=== PATIENT | female | born 1940 | race Two or more races ===

== ENCOUNTER 2025-07-29 19:48 | Inpatient (IN) | payer MEDICARE, MEDICAID ==
[~2025-07-29] VITALS: Ht 154.9 cm; Wt 81.1 kg
[~2025-07-29 19:48] MED LIST: ALEN1TAB PO; ASPI81CH43 PO; IBU600T PO; LEVO75TA6 PO; MEPR400T4 PO; PROP-312 PO
--- NOTE | 2025-07-29 20:20 | ED.PDOC ---
History of Present Illness HPI Comments 84-year-old female who came to ER via EMS for weakness. Patient states since last night she has been having generalized weakness, body aches, on and off fever (Tmax 102 F). Denies any chest pains or shortness a breath. Denies any nausea vomiting or diarrhea. Patient is saturating 91% on room air Chief Complaint: Weakness Time Seen by MD: 20:20 Reviewed Notes: Nurses Notes Allergies: Coded Allergies: NO KNOWN ALLERGIES (Unverified , 10/21/10) Home Meds Reported Medications Meprobamate (Meprobamate) 400 Mg Tab, 1 TAB PO DAILY 10/21/10 *Ibuprofen Micronized (*Motrin) 600 Mg Tb, 1 TAB PO Q6HP PRN for MILD PAIN OR TEMP>100.4 10/21/10 Aspirin (Asa) 81 Mg Ch, 1 TAB PO DAILY 10/21/10 Propoxyphene-N W/ Apap (Darvocet-N 100) 100 Mg Tab, 1 TAB PO Q6HPRN PRN for MILD PAIN OR TEMP>100.4 10/21/10 Alendronate Sodium-Cholecalcif (Fosamax Plus D) 1 Tab Tab, 1 TAB PO DAILY 10/21/10 Levothyroxine Sodium (Levothyroxine Sodium) 75 Mcg Tab, 1 TAB PO QAM 10/21/10 Information Source: Patient Mode of Arrival: EMS Severity: Moderate Timing: Hours Duration: Since onset Prehospital treatment: Oxygen Past Medical History PAST MEDICAL HISTORY: High Lipids, HTN Surgical History: Denies all surgeries INSURANCE 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 MANAGER 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: Denies all INSURANCE OFFICE MANAGER Hx Family History Family History: Reviewed,noncontributory to illness Social History Smoker: Non-Smoker Alcohol: Denies ETOH Use Drugs: Denies Drug Use Lives In: Home Constitutional: reports: fatigue, fever, malaise, weakness; denies: chills, diaphoresis, sweats, others EENTM: denies: blurred vision, double vision, ear bleeding, ear discharge, ear drainage, ear pain, ear ringing, eye pain, eye redness, hearing loss, mouth pain, mouth swelling, nasal discharge, nose bleeding, nose congestion, nose pain, photophobia, tearing, throat pain, throat swelling, voice changes, others Respiratory: denies: cough, hemoptysis, orthopnea, SOB at rest, shortness of breath, SOB with excertion, stridor, wheezing, others Cardiovascular: denies: chest pain, dizzy spells, diaphoresis, Dyspnea on exertion, edema, irregular heart beat, left arm pain, lightheadedness, palpitations, PND, syncope, others Gastrointestinal: denies: abdomen distended, abdominal pain, blood streaked bowels, constipated, diarrhea, dysphagia, difficulty swallowing, hematemesis, melena, nausea, poor appetite, poor fluid intake, rectal bleeding, rectal pain, vomiting, others Genitourinary: denies: abnormal vagina bleeding, burning, dyspareunia, dysuria, flank pain, frequency, hematuria, incontinence, pain, , vagina discharge, urgency, others Neurological: denies: dizziness, fainting, headache, left sided numbness, left sided weakness, numbness, paresthesia, pre-existing deficit, right sided numbne ss, right sided weakness, seizure, speech problems, tingling, tremors, weakness, others Musculoskeletal: denies: back pain, gout, joint pain, joint swelling, muscle pain, muscle stiffness, neck pain, others Integumetry: denies: bruises, change in color, change in hair/nails, dryness, laceration, lesions, lumps, rash, wounds, others Allergic/Immunocompromised: denies: Difficulty Healing, Frequent Infections, Hives, Itching, others Hematologic/Lymphatic: denies: anemia, blood clots, easy bleeding, easy bruising, swollen glands, others Endocrine: denies: excessive hunger, excessive sweating, excessive thirst, excessive urination, flushing, intolerance to cold, intolerance to heat, unexplained weight gain, unexplained weight loss, others Psychiatric: denies: anxiety, bipolar disorder, depression, hopeless, panic disorder, schizophrenia, sleepless, suicidal, others Physical Exam General Appearance: No Apparent Distress, Normal HEENT: Normal ENT Inspection, Pharynx Normal, TMs Normal Neck: Full Range of Motion, Non-Tender, Normal, Normal Inspection Respiratory: Chest Non-Tender, Lungs Clear, No Accessory Muscle Use, No Respiratory Distress, Normal Breath Sounds Cardiovascular: No Edema, No JVD, No Murmur, No Gallop, Normal Peripheral Pulses, Regular Rate/Rhythm Breast Exam: Deferred Gastrointestinal: No Organomegaly, Non Tender, No Pulsatile Mass, Normal Bowel Sounds, Soft Genitalia: Deferred Pelvic: Deferred Rectal: Deferred Extremities: No calf tenderness, Normal capillary refill, Normal inspection, Normal range of motion, Non-tender, No pedal edema Musculoskeletal : Apperance: Normal Neurologic: Alert, workers compensation claims supervisor II-XII nml as Tested, No Motor Deficits, Normal Affect, Normal Mood, No Sensory Deficits Cerebellar Function: Normal Reflexes: Normal Skin: Dry, Normal Color, Warm Lymphatic: No Adenopathy Was a procedure done? Was a procedure done?: No Differential Dx Considerations may include: Anemia, electrolyte imbalance, viral syndrome, COVID-19, influenza X-Ray, Labs, Meds, VS Vital Signs Date Time Temp Pulse Resp B/P (MAP) Pulse Ox O2 Delivery O2 Flow Rate FiO2 07/29/25 22:20 101.1 64 16 147/64 (91) 97 101.1 07/29/25 19:48 102.0 74 28 163/63 95 102.0 Lab Test 07/29/25 22:36 07/29/25 20:34 Range/Units SARS-CoV-2 Antigen (Rapid) Positive *A NEGATIVE White Blood Count 6.2 4.4-10.8 10^3/uL Red Blood Count 4.67 4.0-5.20 10^6/uL Hemoglobin 13.4 12.2-16.2 g/dL Hematocrit 39.7 36.0-46.0 % Mean Corpuscular Volume 85.0 80.0-100.0 fL Mean Corpuscular Hemoglobin 28.6 28.0-32.0 pg Mean Corpuscular Hemoglobin Concent 33.6 32.0-36.0 g/dL Red Cell Distribution Width 14.9 H 11.8-14.3 % Platelet Count 174 140-450 10^3/uL Mean Platelet Volume 8.6 6.9-10.8 fL Neutrophils (%) (Auto) 73.4 37.0-80.0 % Lymphocytes (%) (Auto) 14.5 10.0-50.0 % Monocytes (%) (Auto) 10.9 0.0-12.0 % Eosinophils (%) (Auto) 0.4 0.0-7.0 % Basophils (%) (Auto) 0.8 0.0-2.0 % Neutrophils # (Auto) 4.6 1.6-8.6 10 ^3/uL Lymphocytes # (Auto) 0.9 0.4-5.4 10 ^3/uL Monocytes # (Auto) 0.7 0-1.3 10 ^3/uL Eosinophils # (Auto) 0 0-0.8 10 ^3/uL Basophils # (Auto) 0 0-0.2 10 ^3/uL Nucleated Red Blood Cells 0.0 % Sodium Level 140 136-145 mmol/L Potassium Level 4.0 3.5-5.1 mmol/L Chloride Level 106 98-107 mmol/L Carbon Dioxide Level 24 20-31 mmol/L Anion Gap 10 5-15 Blood Urea Nitrogen 17 9-23 mg/dL Creatinine 1.16 H 0.550-1.02 mg/dL Glomerular Filtration Rate Calc 46 >90 mL/min BUN/Creatinine Ratio 14.7 10.0-20.0 Serum Glucose 122 H 74-106 mg/dL Lactic Acid Level 1.4 0.4-2.0 mmol/L Calcium Level 9.7 8.7-10.4 mg/dL Total Bilirubin 0.5 0.2-1.0 mg/dL Aspartate Amino Transferase (AST) 40 13-40 U/L Alanine Aminotransferase (ALT) 37 7-40 U/L Alkaline Phosphatase 40 L 46-116 U/L Total Protein 7.3 5.7-8.2 g/dL Albumin 4.3 3.2-4.8 g/dL Thyroid Stimulating Hormone (TSH) 0.43 L 0.55-4.78 uIU/mL Free Thyroxine (T4) Calculated Pending Current Medications Medications (Trade) Dose Ordered Sig/Citlaly Route Start Time Stop Time Status Last Admin Sodium Chloride 1,000 ml @ 1,000 mls/hr Q1H ONCE IVB 07/29/25 20:30 07/29/25 21:29 DC 07/29/25 22:28 Acetaminophen (Ofirmev) 1,000 mg ONCE ONCE IV 07/29/25 22:00 07/29/25 22:01 DC 07/29/25 22:28 Piperacillin Sod/ Tazobactam Sod 100 ml @ 100 mls/hr ONCE ONCE IV 07/29/25 22:00 07/29/25 22:59 DC 07/29/25 23:02 EXAM: XY CHEST PORTABLE HISTORY: SOB, fever TECHNIQUE: 1 view of the chest COMPARISON: None FINDINGS/IMPRESSION: LUNGS: No pleural effusion, consolidation, or pneumothorax MEDIASTINUM: Unremarkable BONES: No acute osseous abnormality OTHER: None Time of 1ST Reevaluation: 20:17 Reevaluation 1ST: Unchanged Patient Education/Counseling: Diagnosis, Treatment Family Education/Counseling: No Family Present SEPSIS Sepsis Screen Physician Orders Urinalysis (07/29/25 20:17) Blood Culture (07/29/25 20:17) Chest Portable (07/29/25 20:17) Rapid Influenza A&B (07/29/25 20:17) Free T4 (Free Thyroxine) (07/29/25 20:17) Vital Signs Date Time Temp Pulse Resp B/P (MAP) Pulse Ox O2 Delivery O2 Flow Rate FiO2 07/29/25 22:20 101.1 64 16 147/64 (91) 97 101.1 07/29/25 19:48 102.0 74 28 163/63 95 102.0 Laboratory Tests Test 07/29/25 20:34 Lactic Acid Level 1.4 mmol/L (0.4-2.0) White Blood Count 6.2 10^3/uL (4.4-10.8) Medications Medications Dose Ordered Sig/Citlaly Route Start Time Stop Time Status Last Admin Dose Admin Acetaminophen 1,000 mg ONCE ONCE IV 07/29/25 22:00 07/29/25 22:01 DC 07/29/25 22:28 Piperacillin Sod/ Tazobactam Sod 100 ml @ 100 mls/hr ONCE ONCE IV 07/29/25 22:00 07/29/25 22:59 DC 07/29/25 23:02 Sodium Chloride 1,000 ml @ 1,000 mls/hr Q1H ONCE IVB 07/29/25 20:30 07/29/25 21:29 DC 07/29/25 22:28 Departure 1 Departure Time of Disposition: 00:30 Impression: Primary Impression: Hypothyroidism Additional Impressions: Fever Dehydration COVID-19 Disposition: ADMITTED INPATIENT Admit to: Med Surg Condition: Guarded Discharged With: Self Comments 84-year-old female with a fever 102 at home and generalized weakness. Lab and chest x-ray results reviewed. Patient is positive for COVID. On re-evaluation patient is still very weak, too weak to stand without assistance and short of breath with exertion. Patient will need admission for supportive care and further workup. Patient was given IV fluids and IV Zosyn antibiotics. Critical Care Note Critical Care Time?: No Stability Stability form required: No Heart Score Heart Score: Heart Score Response (Comments) Value History N/A 0 EKG N/A 0 Age N/A 0 Risk Factors N/A 0 Troponin N/A 0 Total 0 I personally scribed for BRANDEN SAUNDERS MD ([email or web address]) on 07/29/25 at 20:20. Electronically submitted by Carter Spann ([facility]). I personally scribed for BRANDEN SAUNDERS MD ([email or web address]) on 07/29/25 at 23:54. Electronically submitted by Carter Spann ([email or web address]). BRANDEN SAUNDERS MD Jul 29, 2025 20:20
[2025-07-29 20:46] LABS: Hematocrit 39.7 % (36.0-46.0); Hemoglobin 13.4 g/dL (12.2-16.2); Mean Corpuscular Hemoglobin 28.6 pg (28.0-32.0); Mean Corpuscular Volume 85.0 fL (80.0-100.0); Nucleated Red Blood Cells % 0.0 %
[2025-07-29 20:58] LABS: Alanine Aminotransferase 37 U/L (7-40); Albumin 4.3 g/dL (3.2-4.8); Anion Gap 10 (5-15); BUN/Creatinine Ratio 14.7 (10.0-20.0); Bilirubin, Total 0.5 mg/dL (0.2-1.0); Blood Urea Nitrogen 17 mg/dL (9-23); Calcium 9.7 mg/dL (8.7-10.4); Carbon Dioxide 24 mmol/L (20-31); Chloride 106 mmol/L (98-107); Potassium 4.0 mmol/L (3.5-5.1); Sodium 140 mmol/L (136-145); Total Protein 7.3 g/dL (5.7-8.2)
--- NOTE | 2025-07-29 21:07 | DVH ---
EXAM: XY CHEST PORTABLE HISTORY: SOB, fever TECHNIQUE: 1 view of the chest COMPARISON: None FINDINGS/IMPRESSION: LUNGS: No pleural effusion, consolidation, or pneumothorax MEDIASTINUM: Unremarkable BONES: No acute osseous abnormality OTHER: None
[2025-07-29 21:26] LABS: Alkaline Phosphatase 40 U/L (46-116); Glucose 122 mg/dL (74-106)
[2025-07-29] MEDS: SODIUM CHLORIDE 0.9% 1,000 ML IVB ONE (22:28)
[2025-07-29] MEDS: ACETAMINOPHEN IV 1000 MG/100ML (10MG/ML) IV ONE (22:28)
[2025-07-29] MEDS: PIPERACILLIN-TAZOB 3.375GM 100 ML IV ONE (23:02)
[2025-07-30] VITALS (8 sets, daily range): BP systolic 136–166; BP diastolic 59–73; PULSE 52–65; RESP 17–20; TEMP 98.5–99; O2SAT 93–100
[2025-07-30 00:13] LABS: COVID19 ANTIGEN SOFIA FIA POSITIVE (NEGATIVE)
[2025-07-30] MEDS ORDERED: NITROGLYCERIN 0.4 MG SL TAB SL PRN (02:45)
[2025-07-30] MEDS ORDERED: HYDROcodone-ACET 5/325MG TAB PO PRN (02:45)
[2025-07-30] MEDS ORDERED: ONDANSETRON HCL 4 MG/2 ML VIAL IV PRN (02:45)
[2025-07-30] MEDS ORDERED: MORPHINE SULFATE INJ 2 MG/ml SYRG IV PRN (02:45)
[2025-07-30] MEDS ORDERED: ACETAMINOPHEN 325 MG TAB PO PRN (02:45)
--- NOTE | 2025-07-30 03:06 | DVHHP2 ---
History of Present Illness Reason for Visit: COVID-19 viral pneumonia History of Present Illness The patient is a 84-year-old female with past medical history of hypothyroidism, hyperlipidemia, and hypertension who presented to [facility] ED with complaint of generalized weakness associated with shortness of breaths. Patient reports she has been having generalized weakness, body aches, subjective intermittent fever 102 F.Patient was seen and evaluated in the ED, laboratory data shows WBC 6.2, platelets 174, sodium 140, potassium 4.0, BUN 17, creatinine 1.16, GFR 46, glucose 122, calcium 9.7, TSH 0.43, blood pressure 142/53, heart rate 60, temperature 98.5 F, O2 saturation 97% on oxygen. Serology reports positive for COVID-19. Chest x-ray show no pleural effusion, consolidation, or pneumothorax. Please see medication orders section in the computer. On my assessment, patient denies chest pain, no headache, no dizziness, currently on oxygen, no abdominal pain, no diarrhea, no nausea, no vomiting, no fever, no chills. Patient was admitted for further evaluation and medical management. Past Medical History Hypothyroidism, High Lipids, HTN Past Surgical History Denies all surgeries Family History Reviewed, noncontributory to the management of this case. Past Social History The patient lives at home, denies smoking, alcohol or illicit drugs abuse. Review of Systems Constitutional: Yes: Fever, Weakness, Malaise, Other (Fatigue); No: Chills, Sweats Eyes: No: Pain, Vision change, Conjunctivae inflammation, Eyelid inflammation, Other, Redness ENT: No: Ear pain, Ear discharge, Nose pain, Nose discharge, Nose congestion, Mouth pain, Mouth swelling, Throat pain, Throat swelling, Other Respiratory: Shortness of breath; No: Cough, Dry, SOB with excertion, Wheezing, Hemoptysis, Pleuritic Pain, Sputum, Wheezing, Other Cardiovascular: No: Chest Pain, Palpitations, Orthopnea, Paroxysmal Noc. Dyspnea, Edema, Lt Headedness, Other Gastrointestinal: No: Nausea, Vomiting, Abdominal Pain, Diarrhea, Constipation, Melena, Hematochezia, Other Genitourinary: No Dysuria, No Frequency, No Incontinence, No Hematuria, No Retention, No Other Musculoskeletal: No: other, neck pain, shoulder pain, arm pain, back pain, hand pain, leg pain, foot pain Skin: No: Rash, Lesions, Jaundice, Bruising, Other Neurological: No: Weakness, Numbness, Incoordination, Change in speech, Confusion, Seizures, Other Allergies: Coded Allergies: NO KNOWN ALLERGIES (Unverified , 10/21/10) Exam Vital Signs Vital Signs Date Time Temp Pulse Resp B/P (MAP) Pulse Ox O2 Delivery O2 Flow Rate FiO2 07/30/25 02:00 53 18 142/53 (82) 97 07/30/25 00:52 Nasal Cannula* 2 28 07/30/25 00:52 98.5 98.5 General Appearance: Alert, Oriented X3, Cooperative, No acute distress HEENT: Atraumatic, PERRLA, EOMI, Mucous membr. moist/pink Respiratory: Normal air movement, Other (On oxygen) Cardiovascular: Regular rate, Normal S1, Normal S2, No murmurs Abdominal: Normal bowel sounds, Soft, No tenderness, No hepatospenomegaly, No masses Extremities: No clubbing, No cyanosis, No edema, Normal pulses, No tenderness/swelling Skin: No rashes, No breakdown, No significant lesion Neuro: Normal speech, Normal tone, Sensation intact, Cranial nerves 3-12 NL, Reflexes 2+, Other (Generalized weakness) Psych/Mental Status: Mental status NL, Mood NL Labs/Xrays Labs Test 07/29/25 22:36 07/29/25 20:34 Range/Units Influenza Type A Antigen Negative Negative Influenza Type B Antigen Negative Negative SARS-CoV-2 Antigen (Rapid) Positive *A NEGATIVE White Blood Count 6.2 4.4-10.8 10^3/uL Red Blood Count 4.67 4.0-5.20 10^6/uL Hemoglobin 13.4 12.2-16.2 g/dL Hematocrit 39.7 36.0-46.0 % Mean Corpuscular Volume 85.0 80.0-100.0 fL Mean Corpuscular Hemoglobin 28.6 28.0-32.0 pg Mean Corpuscular Hemoglobin Concent 33.6 32.0-36.0 g/dL Red Cell Distribution Width 14.9 H 11.8-14.3 % Platelet Count 174 140-450 10^3/uL Mean Platelet Volume 8.6 6.9-10.8 fL Neutrophils (%) (Auto) 73.4 37.0-80.0 % Lymphocytes (%) (Auto) 14.5 10.0-50.0 % Monocytes (%) (Auto) 10.9 0.0-12.0 % Eosinophils (%) (Auto) 0.4 0.0-7.0 % Basophils (%) (Auto) 0.8 0.0-2.0 % Neutrophils # (Auto) 4.6 1.6-8.6 10 ^3/uL Lymphocytes # (Auto) 0.9 0.4-5.4 10 ^3/uL Monocytes # (Auto) 0.7 0-1.3 10 ^3/uL Eosinophils # (Auto) 0 0-0.8 10 ^3/uL Basophils # (Auto) 0 0-0.2 10 ^3/uL Nucleated Red Blood Cells 0.0 % Sodium Level 140 136-145 mmol/L Potassium Level 4.0 3.5-5.1 mmol/L Chloride Level 106 98-107 mmol/L Carbon Dioxide Level 24 20-31 mmol/L Anion Gap 10 5-15 Blood Urea Nitrogen 17 9-23 mg/dL Creatinine 1.16 H 0.550-1.02 mg/dL Glomerular Filtration Rate Calc 46 >90 mL/min BUN/Creatinine Ratio 14.7 10.0-20.0 Serum Glucose 122 H 74-106 mg/dL Lactic Acid Level 1.4 0.4-2.0 mmol/L Calcium Level 9.7 8.7-10.4 mg/dL Total Bilirubin 0.5 0.2-1.0 mg/dL Aspartate Amino Transferase (AST) 40 13-40 U/L Alanine Aminotransferase (ALT) 37 7-40 U/L Alkaline Phosphatase 40 L 46-116 U/L Total Protein 7.3 5.7-8.2 g/dL Albumin 4.3 3.2-4.8 g/dL Thyroid Stimulating Hormone (TSH) 0.43 L 0.55-4.78 uIU/mL PATIENT: JUSTIN BARNETTT: [id number] UNIT: [id number] : 1940 LOC: ER ROOM / BED: / AGE / SEX: 84 / F ADM STATUS: REG ER SERVICE 16 ORDERING PHYSICIAN: BRANDEN SAUNDERS MD PROCEDURE(s): CXRP - CHEST PORTABLE REASON: SOB, fever ORDER NUMBER(s): [id number], ACCESSION NUMBER(s): [id number] EXAM: XY CHEST PORTABLE HISTORY: SOB, fever TECHNIQUE: 1 view of the chest COMPARISON: None FINDINGS/IMPRESSION: LUNGS: No pleural effusion, consolidation, or pneumothorax MEDIASTINUM: Unremarkable BONES: No acute osseous abnormality SEPSIS Sepsis Screen Date sepsis recognized/suspect: Jul 30, 2025 Time Sepsis recognized/suspect: 51 Recent Procedure: No On Antibiotic Therapy: No Respiratory Rate >20: No Heart Rate >90: No Temp<36 C (96.8 F) or >38.3 C: No SBP <90 or MAP <65 mmHG: No New Acute Mental Status Change: No Is the patient on CPAP, BIPAP,: No Physician Orders Urinalysis (07/29/25 20:17) Blood Culture (07/29/25 20:17) Chest Portable (07/29/25 20:17) Free T4 (Free Thyroxine) (07/29/25 20:17) Isolation Order (07/30/25 02:42) Precautions (Contact,Droplets, (07/30/25 02:42) Zinc 220 Mg Po Daily (07/30/25 10:00) Albuterol Inh (Covid-19) 90mcg (07/30/25 02:45) Oob To Chair Q4HR (07/30/25 02:42) Incentive Spirometry Q 1hr (07/30/25 02:42) Assistant Dean (07/30/25 02:42) Pulmicort Inhaler (07/30/25 10:00) Decadron 6mg Iv Daily (07/30/25 10:00) Lovenox 40mg Daily (07/30/25 10:00) Admit (07/30/25 02:42) Allergies (07/30/25 02:42) Code Status (07/30/25 02:42) Sodium Chloride Lock (Saline Lock Ns) (07/30/25 06:00) Oxygen Per Hour (07/30/25 02:42) Hydrocodone-Acet 5/325mg Tab ([place] 5/32 (07/30/25 02:45) Ondansetron Hcl (Zofran) (07/30/25 02:45) Docusate Sodium Capsule (Colace Capsule) (07/30/25 02:45) Ascorbic Acid Tablet (Vitamin C Tablet) (07/30/25 10:00) Multiple Vitamin Tablet (Mvi Tab) (07/30/25 10:00) Fall Risk Precautions In Place QSHIFT (07/30/25 02:42) Complete Blood Count (07/31/25 04:00) Comprehensive Metabolic Panel (07/31/25 04:00) Cardiac Diet-2gna,Lofat,Lochol (07/30/25 Breakfast) Condition: Serious (07/30/25 02:42) Acetaminophen Tablet (Tylenol Tablet) (07/30/25 02:45) Maintain Bed Rest (07/30/25 02:42) Sequential Compression Device (07/30/25 ) Nitroglycerin Sublingual (Ntrostat Subli (07/30/25 02:45) Morphine Sulfate Injection (07/30/25 02:45) Stat Ekg For Chest Pain (07/30/25 02:42) Notify Md Of Changes From Base (07/30/25 02:42) Assistant Dean For 24 Hours (07/30/25 02:42) Emergency Dysrhythmia Protocol (07/30/25 02:42) Rhythm Strips Once Every Shift (07/30/25 02:42) Oxygen By Nasal Cannula (07/30/25 02:42) Alendronate Sodium (Fosamax) (07/30/25 06:00) Levothyroxine Tablet (Synthroid Tablet) (07/30/25 06:00) Complete Blood Count (07/30/25 04:00) Comprehensive Metabolic Panel (07/30/25 04:00) Vital Signs Date Time Temp Pulse Resp B/P (MAP) Pulse Ox O2 Delivery O2 Flow Rate FiO2 07/30/25 02:00 53 18 142/53 (82) 97 07/30/25 00:52 Nasal Cannula* 2 28 07/30/25 00:52 98.5 60 17 147/51 (83) 91 98.5 07/29/25 23:00 98.9 98.9 07/29/25 22:20 101.1 64 16 147/64 (91) 97 101.1 07/29/25 19:48 102.0 74 28 163/63 95 102.0 Laboratory Tests Test 07/29/25 20:34 Lactic Acid Level 1.4 mmol/L (0.4-2.0) White Blood Count 6.2 10^3/uL (4.4-10.8) Medications Medications Dose Ordered Sig/Citlaly Route Start Time Stop Time Status Last Admin Dose Admin Acetaminophen 1,000 mg ONCE ONCE IV 07/29/25 22:00 07/29/25 22:01 DC 07/29/25 22:28 1,000 MG Piperacillin Sod/ Tazobactam Sod 100 ml @ 100 mls/hr ONCE ONCE IV 07/29/25 22:00 07/29/25 22:59 DC 07/29/25 23:02 100 MLS/HR Sodium Chloride 1,000 ml @ 1,000 mls/hr Q1H ONCE IVB 07/29/25 20:30 07/29/25 21:29 DC 07/29/25 22:28 1,000 MLS/HR Assessment/Plan Assessment/Plan COVID-19 viral infection Hypothyroidism Dehydration Fever, unspecified Plan 1. Admit to telemetry unit 2. Breathing treatment 3. Pain control management 4. Management of fluids and electrolytes 5. Consultation for hospitalist 6. Diagnostic tests chest x-ray 7. DVT prophylaxis-on Lovenox 8. Repeat labs CBC, CMP in a.m. 9. Continue with current medical management 10. Treatment plan discussed with patient and RN. Patient verbalized understanding. Plan discussed with: Patient, Other (RN) My Orders Orders - KARON HOLLAND DNP Procedure Category Date Status Time Isolation Order ORDERS 07/30/25 Verified 02:42 Precautions [facility] 07/30/25 Verified (Contact,Droplets, 02:42 Zinc 220 Mg Po Daily [facility] 07/30/25 Verified 10:00 Albuterol Inh [facility] 07/30/25 Verified (Covid-19) 90mcg 02:45 Oob To Chair [facility] 07/30/25 Verified 02:42 Incentive Spirometry ORDERS 07/30/25 Verified Q 1hr 02:42 Assistant Dean ORDERS 07/30/25 Verified 02:42 Pulmicort Inhaler [facility] 07/30/25 Verified 10:00 Decadron 6mg Iv Daily [facility] 07/30/25 Verified 10:00 Lovenox 40mg Daily [facility] 07/30/25 Verified 10:00 Admit ADMIT 07/30/25 Verified 02:42 Allergies [facility] 07/30/25 Verified 02:42 Code Status CODE 07/30/25 Verified 02:42 Sodium Chloride Lock PHA 07/30/25 Verified (Saline Lock Ns) 06:00 Oxygen Per Hour RT 07/30/25 Verified 02:42 Hydrocodone-Acet PHA 07/30/25 Verified 5/325mg Tab ([place] 02:45 Ondansetron Hcl PHA 07/30/25 Verified (Zofran) 02:45 Docusate Sodium PHA 07/30/25 Verified Capsule (Colace 02:45 Ascorbic Acid Tablet [facility] 07/30/25 Verified (Vitamin C Tablet) 10:00 Multiple Vitamin PHA 07/30/25 Verified Tablet (Mvi Tab) 10:00 Fall Risk Precautions [facility] 07/30/[address] 02:42 Complete Blood Count LAB 07/31/25 Verified 04:00 Comprehensive LAB 07/31/25 Verified Metabolic Panel 04:00 Cardiac DIET 07/30/25 Verified Diet-2gna,Lofat,Lochol Breakfast Condition: Serious [facility] 07/30/25 Verified 02:42 Acetaminophen Tablet [facility] 07/30/25 Verified (Tylenol Tablet) 02:45 Maintain Bed Rest [facility] 07/30/25 Verified 02:42 Sequential [facility] 07/30/25 Verified Compression Device Nitroglycerin [facility] 07/30/25 Verified Sublingual (Ntrostat 02:45 Morphine Sulfate [facility] 07/30/25 Verified Injection 02:45 Stat Ekg For Chest [facility] 07/30/25 Verified Pain 02:42 Notify Md Of Changes [facility] 07/30/25 Verified From Base 02:42 Assistant Dean For [facility] 07/30/25 Verified 24 Hours 02:42 Emergency Dysrhythmia [facility] 07/30/25 Verified Protocol 02:42 Rhythm Strips Once [facility] 07/30/25 Verified Every Shift 02:42 Oxygen By Nasal RT 07/30/25 Verified Cannula 02:42 Alendronate Sodium [facility] 07/30/25 Verified (Fosamax) 06:00 Levothyroxine Tablet [facility] 07/30/25 Verified (Synthroid Tablet) 06:00 Complete Blood Count LAB 07/30/25 Verified 04:00 Comprehensive LAB 07/30/25 Verified Metabolic Panel 04:00 Problem List: (1) COVID-19 virus infection (2) Hypothyroidism (3) Dehydration (4) Fever, unspecified Date of Service: Jul 30, 2025 Billing Provider: KARON HOLLAND DNP Common Visit Codes: [id number] INP/OBS CARE (HIGH) KARON HOLLAND DNP Jul 30, 2025 03:06
[2025-07-30 04:40] LABS: Urine Protein, UAD Negative (Negative)
[2025-07-30] MEDS ORDERED: ALENDRONATE SODIUM 10 MG TAB PO SCH (06:00)
[2025-07-30] MEDS: LEVOTHYROXINE SODIUM 25 MCG TAB PO SCH (06:21)
[2025-07-30] MEDS: SODIUM CHLOR 0.9% PF (SALINE LOCK) 10ML VIAL/SYR IV SCH (06:21)
[2025-07-30 10:13] LABS: Hematocrit 43.1 % (36.0-46.0); Hemoglobin 13.8 g/dL (12.2-16.2); Mean Corpuscular Hemoglobin 28.1 pg (28.0-32.0); Mean Corpuscular Volume 87.9 fL (80.0-100.0); Nucleated Red Blood Cells % 0.1 %
[2025-07-30 10:24] LABS: Alanine Aminotransferase 36 U/L (7-40); Albumin 4.0 g/dL (3.2-4.8); Anion Gap 11 (5-15); BUN/Creatinine Ratio 8.5 (10.0-20.0); Bilirubin, Total 0.5 mg/dL (0.2-1.0); Calcium 9.2 mg/dL (8.7-10.4); Carbon Dioxide 21 mmol/L (20-31); Potassium 3.7 mmol/L (3.5-5.1); Sodium 139 mmol/L (136-145); Total Protein 7.1 g/dL (5.7-8.2)
[2025-07-30] MEDS: ASCORBIC ACID 500 MG TAB PO SCH (10:31)
[2025-07-30] MEDS: MULTIPLE VITAMIN TAB PO SCH (10:31)
[2025-07-30] MEDS: ENOXAPARIN SOD 40 MG/0.4 ML SYRINGE SC SCH (10:31)
[2025-07-30] MEDS: ZINC SULFATE 220mg CAP or TAB PO SCH (10:31)
[2025-07-30 10:32] LABS: Alkaline Phosphatase 37 U/L (46-116); Blood Urea Nitrogen 9 mg/dL (9-23); Chloride 107 mmol/L (98-107); Glucose 113 mg/dL (74-106)
[2025-07-30] MEDS: BUDESONIDE (INHALATION) 180 MCG IH IN SCH (10:32)
--- NOTE | 2025-07-30 12:43 | DVHPN2 ---
Reviewed: Care Plan, H&P, Labs, Medications, Previous Orders, Radiology Changes from previous H/P or p: No Changes Eyes: No Pain, No Vision change, No Conjunctivae inflammation, No Eyelid inflammation, No Other, No Redness ENT: No Ear pain, No Ear discharge, No Nose pain, No Nose discharge, No Nose congestion, No Mouth pain, No Mouth swelling, No Throat pain, No Throat swelling, No Other Cardiovascular: No Chest Pain, No Palpitations, No Orthopnea, No Paroxysmal Noc. Dyspnea, No Edema, No Lt Headedness, No Other Respiratory: No Cough, No Dry; Shortness of breath; No SOB with excertion, No Wheezing, No Hemoptysis, No Pleuritic Pain, No Sputum, No Other Gastrointestinal: No Nausea, No Vomiting, No Abdominal Pain, No Diarrhea, No Constipation, No Melena, No Hematochezia, No Other Genitourinary: No Dysuria, No Frequency, No Incontinence, No Hematuria, No Retention, No Other Musculoskeletal: No other, No neck pain, No shoulder pain, No arm pain, No back pain, No hand pain, No leg pain, No foot pain Skin: No Rash, No Lesions, No Jaundice, No Bruising, No Other Objective Vitals Vital Signs Date Time Temp Pulse Resp B/P (MAP) Pulse Ox O2 Delivery O2 Flow Rate FiO2 07/30/25 11:00 56 13 138/40 (72) 94 07/30/25 10:30 Room Air 07/30/25 10:30 0 21 07/30/25 07:15 98.8 98.8 Intake/Output Intake and Output 07/30/25 07:00 Intake Total 1100 ml Output Total 500 ml Balance 600 ml Intake IV Total 1100 ml Output Urine Total 500 ml Medications Current Medications Medications Dose Ordered Sig/Citlaly Route Start Time Stop Time Status Last Admin Dose Admin Zinc Sulfate 220 mg DAILY PO 07/30/25 10:00 07/30/25 10:31 220 MG Albuterol 90 mcg TIDPRN PRN IN 07/30/25 02:45 Budesonide 360 mcg BID IN 07/30/25 10:00 07/30/25 10:32 360 MCG Dexamethasone Sodium Phosphate 6 mg DAILY IV 07/30/25 10:00 08/09/25 09:59 07/30/25 10:31 6 MG Enoxaparin Sodium 40 mg DAILY SC 07/30/25 10:00 07/30/25 10:31 40 MG Sodium Chloride 10 ml Q8HR IV 07/30/25 06:00 07/30/25 06:21 10 ML Acetaminophen/ Hydrocodone Bitart 1 tab Q4HP PRN PO 07/30/25 02:45 Ondansetron HCl 4 mg Q4HP PRN IV 07/30/25 02:45 Docusate Sodium 100 mg BIDPRN PRN PO 07/30/25 02:45 Ascorbic Acid 500 mg BID PO 07/30/25 10:00 07/30/25 10:31 500 MG Multivitamins 1 tab DAILY PO 07/30/25 10:00 07/30/25 10:31 1 TAB Acetaminophen 650 mg Q6HP PRN PO 07/30/25 02:45 Nitroglycerin 0.4 mg Q5MINP PRN SL 07/30/25 02:45 Morphine Sulfate 2 mg Q30M PRN IV 07/30/25 02:45 Alendronate Sodium 70 mg Q7D@0600 PO 07/30/25 06:00 Hold Levothyroxine Sodium 75 mcg QAM@0600 PO 07/30/25 06:00 07/30/25 06:21 75 MCG Laboratory Results Laboratory Tests 07/30/25 09:58 Chemistry Test 07/29/25 20:34 07/30/25 09:58 Albumin 4.3 g/dL (3.2-4.8) 4.0 g/dL (3.2-4.8) Calcium Level 9.7 mg/dL (8.7-10.4) 9.2 mg/dL (8.7-10.4) Total Protein 7.3 g/dL (5.7-8.2) 7.1 g/dL (5.7-8.2) LFT Test 07/29/25 20:34 07/30/25 09:58 Alanine Aminotransferase (ALT) 37 U/L (7-40) 36 U/L (7-40) Alkaline Phosphatase 40 U/L (46-116) L 37 U/L (46-116) L Aspartate Amino Transferase (AST) 40 U/L (13-40) 41 U/L (13-40) H Total Bilirubin 0.5 mg/dL (0.2-1.0) 0.5 mg/dL (0.2-1.0) HgA1c, TSH Test 07/29/25 20:34 Thyroid Stimulating Hormone (TSH) 0.43 uIU/mL (0.55-4.78) L Urinalysis Test 07/30/25 04:14 Urine Color Light-yellow (Yellow) Urine Clarity Clear (Clear) Urine pH 6.0 (5.0-9.0) Urine Specific [place] 1.010 (1.001-1.035) Urine Protein Negative (Negative) Urine Ketones Negative (Negative) Urine Blood Negative /uL (Negative) Urine Nitrite Negative (Negative) Urine Bilirubin Negative (Negative) Urine Urobilinogen Normal mg/dL (Negative) Urine Leukocyte Esterase Negative /uL (Negative) Urine RBC 2 /hpf (0 - 4) Urine Microscopic WBC < 1 /HPF (0-5) Urine Squamous Epithelial Cells Few /hpf (<5) Urine Bacteria None seen /hpf (None Seen) Urine Glucose Normal mg/dL (Normal) Labs and/or images reviewed: Labs reviewed by me, Image(s) reviewed by me Assessment/Plan Assessment/Plan COVID positive pneumonia : Rocephin azithromycin albuterol Atrovent Decadron zinc vitamin-C vitamin D3 multivitamin Hypothyroidism Dehydration Fever secondary to COVID infection Hypotension Hypercholesterolemia Time spent 55 minute Patient is full code Advanced care planning time 20 minutes Plan discussed with: Patient Date of Service: Jul 30, 2025 Billing Provider: MILAD SALAS MD Common Visit Codes: [id number] INP/OBS CARE(HIGH) Secondary Visit Codes: [id number] CARE PLAN 30 MINUTES MILAD SALAS MD Jul 30, 2025 12:43
[2025-07-30] MEDS: AZITHROMYCIN 500MG/ 250ML 250 ML IV ONE (13:17)
[2025-07-30] MEDS: ALBUTEROL SULF HFA 90MCG INH 200DOSE IN PRN (20:12)
[2025-07-31] VITALS (11 sets, daily range): BP systolic 129–153; BP diastolic 59–84; PULSE 47–56; RESP 16–17; TEMP 97.9–99.1; O2SAT 94–98
[2025-07-31 06:30] LABS: Alanine Aminotransferase 35 U/L (7-40); Albumin 4.0 g/dL (3.2-4.8); Anion Gap 12 (5-15); BUN/Creatinine Ratio 12.5 (10.0-20.0); Bilirubin, Total 0.4 mg/dL (0.2-1.0); Blood Urea Nitrogen 12 mg/dL (9-23); Calcium 9.0 mg/dL (8.7-10.4); Carbon Dioxide 22 mmol/L (20-31); Chloride 105 mmol/L (98-107); Potassium 3.9 mmol/L (3.5-5.1); Sodium 139 mmol/L (136-145); Total Protein 6.6 g/dL (5.7-8.2)
[2025-07-31 06:35] LABS: Hematocrit 38.3 % (36.0-46.0); Hemoglobin 13.0 g/dL (12.2-16.2); Mean Corpuscular Hemoglobin 28.7 pg (28.0-32.0); Mean Corpuscular Volume 84.9 fL (80.0-100.0); Nucleated Red Blood Cells % 0.0 %
[2025-07-31 06:36] LABS: Alkaline Phosphatase 34 U/L (46-116); Glucose 110 mg/dL (74-106)
[2025-07-31] MEDS: AZITHROMYCIN 500MG/ 250ML 250 ML IV SCH (10:00)
--- NOTE | 2025-07-31 10:08 | DVHPN2 ---
Reviewed: Care Plan, H&P, Labs, Medications, Previous Orders, Radiology Changes from previous H/P or p: No Changes Eyes: No Pain, No Vision change, No Conjunctivae inflammation, No Eyelid inflammation, No Other, No Redness ENT: No Ear pain, No Ear discharge, No Nose pain, No Nose discharge, No Nose congestion, No Mouth pain, No Mouth swelling, No Throat pain, No Throat swelling, No Other Cardiovascular: No Chest Pain, No Palpitations, No Orthopnea, No Paroxysmal Noc. Dyspnea, No Edema, No Lt Headedness, No Other Respiratory: No Cough, No Dry; Shortness of breath; No SOB with excertion, No Wheezing, No Hemoptysis, No Pleuritic Pain, No Sputum, No Other Gastrointestinal: No Nausea, No Vomiting, No Abdominal Pain, No Diarrhea, No Constipation, No Melena, No Hematochezia, No Other Genitourinary: No Dysuria, No Frequency, No Incontinence, No Hematuria, No Retention, No Other Musculoskeletal: No other, No neck pain, No shoulder pain, No arm pain, No back pain, No hand pain, No leg pain, No foot pain Skin: No Rash, No Lesions, No Jaundice, No Bruising, No Other Objective Vitals Vital Signs Date Time Temp Pulse Resp B/P (MAP) Pulse Ox O2 Delivery O2 Flow Rate FiO2 07/31/25 10:00 51 16 95 07/31/25 10:00 Room Air* 0 21 07/31/25 09:00 98.3 129/60 (83) 98.3 Intake/Output Intake and Output 07/31/25 07:00 Intake Total 540 ml Balance 540 ml Intake Oral 240 ml IV Total 300 ml # Voids 2 Medications Current Medications Medications Dose Ordered Sig/Citlaly Route Start Time Stop Time Status Last Admin Dose Admin Zinc Sulfate 220 mg DAILY PO 07/30/25 10:00 07/31/25 09:31 220 MG Albuterol 90 mcg TIDPRN PRN IN 07/30/25 02:45 07/30/25 20:12 90 MCG Budesonide 360 mcg BID IN 07/30/25 10:00 07/31/25 10:00 360 MCG Dexamethasone Sodium Phosphate 6 mg DAILY IV 07/30/25 10:00 08/09/25 09:59 07/31/25 09:31 6 MG Enoxaparin Sodium 40 mg DAILY SC 07/30/25 10:00 07/31/25 09:32 40 MG Sodium Chloride 10 ml Q8HR IV 07/30/25 06:00 07/31/25 06:00 10 ML Acetaminophen/ Hydrocodone Bitart 1 tab Q4HP PRN PO 07/30/25 02:45 Ondansetron HCl 4 mg Q4HP PRN IV 07/30/25 02:45 Docusate Sodium 100 mg BIDPRN PRN PO 07/30/25 02:45 Ascorbic Acid 500 mg BID PO 07/30/25 10:00 07/31/25 09:31 500 MG Multivitamins 1 tab DAILY PO 07/30/25 10:00 07/31/25 09:30 1 TAB Acetaminophen 650 mg Q6HP PRN PO 07/30/25 02:45 Nitroglycerin 0.4 mg Q5MINP PRN SL 07/30/25 02:45 Morphine Sulfate 2 mg Q30M PRN IV 07/30/25 02:45 Alendronate Sodium 70 mg Q7D@0600 PO 07/30/25 06:00 Hold Levothyroxine Sodium 75 mcg QAM@0600 PO 07/30/25 06:00 07/31/25 06:30 75 MCG Ceftriaxone Sodium 50 ml @ 100 mls/hr DAILY@09 IV 07/31/25 09:00 07/31/25 09:32 100 MLS/HR Azithromycin 250 ml @ 125 mls/hr DAILY IV 07/31/25 10:00 Laboratory Results Laboratory Tests 07/31/25 05:12 Chemistry Test 07/31/25 05:12 Albumin 4.0 g/dL (3.2-4.8) Calcium Level 9.0 mg/dL (8.7-10.4) Total Protein 6.6 g/dL (5.7-8.2) LFT Test 07/31/25 05:12 Alanine Aminotransferase (ALT) 35 U/L (7-40) Alkaline Phosphatase 34 U/L (46-116) L Aspartate Amino Transferase (AST) 38 U/L (13-40) Total Bilirubin 0.4 mg/dL (0.2-1.0) Urinalysis Test 07/30/25 04:14 Urine Color Light-yellow (Yellow) Urine Clarity Clear (Clear) Urine pH 6.0 (5.0-9.0) Urine Specific [place] 1.010 (1.001-1.035) Urine Protein Negative (Negative) Urine Ketones Negative (Negative) Urine Blood Negative /uL (Negative) Urine Nitrite Negative (Negative) Urine Bilirubin Negative (Negative) Urine Urobilinogen Normal mg/dL (Negative) Urine Leukocyte Esterase Negative /uL (Negative) Urine RBC 2 /hpf (0 - 4) Urine Microscopic WBC < 1 /HPF (0-5) Urine Squamous Epithelial Cells Few /hpf (<5) Urine Bacteria None seen /hpf (None Seen) Urine Glucose Normal mg/dL (Normal) Microbiology Microbiology Date/Time Source Procedure Growth Status 07/29/25 20:34 Blood Blood Culture - Preliminary NO GROWTH AFTER 24 HOURS OF INCUBATION. Resulted Labs and/or images reviewed: Labs reviewed by me, Image(s) reviewed by me Assessment/Plan Assessment/Plan COVID positive pneumonia : Rocephin azithromycin albuterol Atrovent Decadron zinc vitamin-C vitamin D3 multivitamin Hypothyroidism Dehydration Fever secondary to COVID infection Hypotension Hypercholesterolemia Time spent 55 minute Patient is full code Advanced care planning time 20 minutes Patient feels better, now on room air RN [place] at bedside Plan discussed with: Patient My Orders Orders - MILAD SALAS MD Procedure Category Date Status Time Ceftriaxone 1gm/50ml PHA 07/31/25 In Process D5w (Rocephin) 09:00 Azithromycin 500mg/ PHA 07/31/25 In Process 250ml (Zithromax 50 10:00 Date of Service: Jul 31, 2025 Billing Provider: MILAD SALAS MD Common Visit Codes: [id number] INP/OBS CARE(HIGH) MILAD SALAS MD Jul 31, 2025 10:08
[2025-07-31] MEDS: DOCUSATE SOD 100 MG CAP PO PRN (11:22)
--- NOTE | 2025-07-31 13:57 | MEDREC ---
[facility] Intervention Section I [facility] Intervention: Review courses of therapy (PER [facility] GUIDELINE FOR COVID- 19, DO NOT ROUTINELY ADMINISTER EMPIRIC THERAPY FOR BACTERIAL PNEUMONIA - PLEASE CONSIDER D/C ABX ) LILY BEY PHARMACIST Jul 31, 2025 13:57
[2025-08-01] VITALS (8 sets, daily range): BP systolic 143–154; BP diastolic 66–82; PULSE 47–57; RESP 12–18; TEMP 36.7; O2SAT 93–97
[2025-08-01] MEDS ORDERED: ASCO500C49 PO (11:40)
[2025-08-01] MEDS ORDERED: ZINC220C10 PO (11:40)
[2025-08-01] MEDS ORDERED: AZIT500T66 PO (11:40)
--- NOTE | 2025-08-01 11:44 | DVHDS2 ---
Discharge Summary Date of Admission Jul 30, 2025 at 02:42 Date of Discharge: Aug 01, 2025 Admitting Diagnosis Shortness of breath Wounds: none Labs/Diagnostic Data: Laboratory Results Test 07/31/25 05:12 07/30/25 04:14 07/29/25 22:36 07/29/25 20:34 White Blood Count 4.8 10^3/uL (4.4-10.8) Red Blood Count 4.51 10^6/uL (4.0-5.20) Hemoglobin 13.0 g/dL (12.2-16.2) Hematocrit 38.3 % (36.0-46.0) Mean Corpuscular Volume 84.9 fL (80.0-100.0) Mean Corpuscular Hemoglobin 28.7 pg (28.0-32.0) Mean Corpuscular Hemoglobin Concent 33.8 g/dL (32.0-36.0) Red Cell Distribution Width 14.5 % (11.8-14.3) Platelet Count 157 10^3/uL (140-450) Mean Platelet Volume 8.7 fL (6.9-10.8) Neutrophils (%) (Auto) 62.9 % (37.0-80.0) Lymphocytes (%) (Auto) 27.2 % (10.0-50.0) Monocytes (%) (Auto) 9.7 % (0.0-12.0) Eosinophils (%) (Auto) 0.0 % (0.0-7.0) Basophils (%) (Auto) 0.2 % (0.0-2.0) Neutrophils # (Auto) 3.0 10 ^3/uL (1.6-8.6) Lymphocytes # (Auto) 1.3 10 ^3/uL (0.4-5.4) Monocytes # (Auto) 0.5 10 ^3/uL (0-1.3) Eosinophils # (Auto) 0 10 ^3/uL (0-0.8) Basophils # (Auto) 0 10 ^3/uL (0-0.2) Nucleated Red Blood Cells 0.0 % Sodium Level 139 mmol/L (136-145) Potassium Level 3.9 mmol/L (3.5-5.1) Chloride Level 105 mmol/L (98-107) Carbon Dioxide Level 22 mmol/L (20-31) Anion Gap 12 (5-15) Blood Urea Nitrogen 12 mg/dL (9-23) Creatinine 0.96 mg/dL (0.550-1.02) Glomerular Filtration Rate Calc 58 mL/min (>90) BUN/Creatinine Ratio 12.5 (10.0-20.0) Serum Glucose 110 mg/dL (74-106) Calcium Level 9.0 mg/dL (8.7-10.4) Total Bilirubin 0.4 mg/dL (0.2-1.0) Aspartate Amino Transferase (AST) 38 U/L (13-40) Alanine Aminotransferase (ALT) 35 U/L (7-40) Alkaline Phosphatase 34 U/L (46-116) Total Protein 6.6 g/dL (5.7-8.2) Albumin 4.0 g/dL (3.2-4.8) Urine Color Light-yellow (Yellow) Urine Clarity Clear (Clear) Urine pH 6.0 (5.0-9.0) Urine Specific [place] 1.010 (1.001-1.035) Urine Protein Negative (Negative) Urine Ketones Negative (Negative) Urine Blood Negative /uL (Negative) Urine Nitrite Negative (Negative) Urine Bilirubin Negative (Negative) Urine Urobilinogen Normal mg/dL (Negative) Urine Leukocyte Esterase Negative /uL (Negative) Urine RBC 2 /hpf (0 - 4) Urine Microscopic WBC < 1 /HPF (0-5) Urine Squamous Epithelial Cells Few /hpf (<5) Urine Bacteria None seen /hpf (None Seen) Urine Glucose Normal mg/dL (Normal) Influenza Type A Antigen Negative (Negative) Influenza Type B Antigen Negative (Negative) SARS-CoV-2 Antigen (Rapid) Positive (NEGATIVE) Lactic Acid Level 1.4 mmol/L (0.4-2.0) Thyroid Stimulating Hormone (TSH) 0.43 uIU/mL (0.55-4.78) Free Thyroxine (T4) Calculated 1.53 ng/dL (0.89-1.76) Other Laboratory Tests 07/31/25 05:12 Brief Hx & Hospital Course: 84-year-old admitted for COVID positive pneumonia treated with Rocephin azithromycin albuterol Atrovent and Decadron vitamin-C zinc vitamin D3. Patient has significantly improved and on room air at the time of discharge and afebrile stable vital signs. Discharged home medications transmitted to the pharmacy Consults/Reason for consult None Operations or Procedures None Condition at Discharge: Fair Final Diagnosis/Problems List COVID positive pneumonia : Rocephin azithromycin albuterol Atrovent Decadron zinc vitamin-C vitamin D3 multivitamin Hypothyroidism Dehydration Fever secondary to COVID infection Hypotension Hypercholesterolemia Discharge Disposition: Home Discharge Instruct/Medications Diet: Regular Activity: Light activity Follow Up/Referral: Resume all previous home medications Follow up with the primary Dr Medications: Azithromycin Vitamin-C Zinc Transmitted to pharmacy Scheduled Alendronate Sodium-Cholecalcif (Fosamax Plus D), 1 TAB PO DAILY, (Reported) Ascorbic Acid (Vitamin C), 500 MG PO BID Aspirin (Asa), 1 TAB PO DAILY, (Reported) Azithromycin (Azithromycin), 1 TAB PO DAILY Levothyroxine Sodium (Levothyroxine Sodium), 1 TAB PO QAM, (Reported) Meprobamate (Meprobamate), 1 TAB PO DAILY, (Reported) Zinc Sulfate (Zinc), 220 MG PO DAILY Scheduled PRN *Ibuprofen Micronized (*Motrin), 1 TAB PO Q6HP PRN for MILD PAIN OR TEMP>100.4, (Reported) Propoxyphene-N W/ Apap (Darvocet-N 100), 1 TAB PO Q6HPRN PRN for MILD PAIN OR TEMP>100.4, (Reported) 36 (Time taken For discharge summary 36 minutes) Discharge Statement: "Patient was advised to return to the ER or call 911 if any headaches, dizziness, shortness of breath, chest pain, abdominal pain, bleeding, fevers, or worsening of medical condition. Patient was counseled about treatment plan, medications, possible side effects, patientverbalized understanding. All questions were answered to the best of my ability. This discharge took greater then 30 minutes in planning, reviewing documentation, counseling the patient, and discussing with other team members." ASSESSMENT ASSESSMENT Hospital Course Improved Assessment COVID positive pneumonia : Rocephin azithromycin albuterol Atrovent Decadron zinc vitamin-C vitamin D3 multivitamin Hypothyroidism Dehydration Fever secondary to COVID infection Hypotension Hypercholesterolemia Date of Service: Aug 01, 2025 Billing Provider: MILAD SALAS MD Common Visit Codes: [id number] DISCH DAY >30min MILAD SALAS MD Aug 01, 2025 11:44
== END 2025-08-01 16:00 | disposition home or self-care (01) | DRG 177 ==
LOC: ER 19:48 → EDBD 19:48 → OVERFLOW 07-30 02:42 → TELE-EAST 07-30 22:40
PROVIDERS: ADMIT Family Medicine; ATTEND Family Medicine
DX: U07.1 COVID-19 (principal); J12.82 Pneumonia due to coronavirus disease 2019; E03.9 Hypothyroidism, unspecified; E86.0 Dehydration; E78.00 Pure hypercholesterolemia, unspecified; I10 Essential (primary) hypertension; I95.9 Hypotension, unspecified; Z79.1 Long term (current) use of non-steroidal anti-inflammatories (NSAID); Z79.899 Other long term (current) drug therapy
CPT/HCPCS: 36415; 71045; 80053; 81001; 83605; 84439; 84443; 85025; 87040; 87426; 87804; 94640; 96360; G0378; J0131; J1100; J2543

== ENCOUNTER 2025-10-24 06:44 | Inpatient (IN) | payer MEDICARE, MEDICAID ==
[~2025-10-24] VITALS: Ht 154.9 cm; Wt 82.6 kg
[~2025-10-24 06:44] MED LIST changes: +ASCO500C49 PO; +AZIT500T66 PO; +ZINC220C10 PO
--- NOTE | 2025-10-24 06:55 | ED.PDOC ---
GI ASSESSMENT HPI Comments 84 year old female with PMHx HTN, HLD presents to the ED via EMS with a chief complaint of nausea/vomiting onset 3 days. Per EMS, patient ate large amount of junk food 3 days ago prior to symptoms, shortly after began experiencing nausea, vomiting, diffused abdominal pain. Upon EMS arrival, patient experienced 1 episode of emesis, 4 mg Zofran was given in route to ED, BG was 186, patient was hypertensive BP 200s systolic. Patient states she has not taken her medication for the past 3 days, states she experienced diffused abdominal pain 2 days ago, now resolved. Denies diarrhea, hematemesis, melena, blood in stool, fever, chills, headache, dizziness, blurred vision. No other symptoms or modifying f actors present at this time. Time Seen by MD: 06:50 Reviewed Notes: Medications, Allergies Allergies: Coded Allergies: NO KNOWN ALLERGIES (Unverified , 10/21/10) Home Meds Active Scripts Zinc Sulfate (Zinc) 220 Mg Cap, 220 MG PO DAILY, #15 CAP Prov:MILAD SALAS MD 08/01/25 Ascorbic Acid (VITAMIN C) 500 Mg Cap, 500 MG PO BID, #30 CAP Prov:MILAD SALAS MD 08/01/25 Azithromycin (Azithromycin) 500 Mg Tab, 1 TAB PO DAILY, #7 TAB Prov:MILAD SALAS MD 08/01/25 Reported Medications Meprobamate (Meprobamate) 400 Mg Tab, 1 TAB PO DAILY 10/21/10 *Ibuprofen Micronized (*Motrin) 600 Mg Tb, 1 TAB PO Q6HP PRN for MILD PAIN OR TEMP>100.4 10/21/10 Aspirin (Asa) 81 Mg Ch, 1 TAB PO DAILY 10/21/10 Propoxyphene-N W/ Apap (Darvocet-N 100) 100 Mg Tab, 1 TAB PO Q6HPRN PRN for MILD PAIN OR TEMP>100.4 10/21/10 Alendronate Sodium-Cholecalcif (Fosamax Plus D) 1 Tab Tab, 1 TAB PO DAILY 10/21/10 Levothyroxine Sodium (Levothyroxine Sodium) 75 Mcg Tab, 1 TAB PO QAM 10/21/10 Information Source: Patient, Emergency Med Personnel Mode of Arrival: EMS Timing: Days Duration: Since onset Prehospital treatment: Other (Zofran 4 mg) Quality: Sharp Severity: Moderate Recent: None Recent Hx of: None Pain Location: Diffuse Modifying Factors: Nothing Associated sign and symptoms: Nausea, Vomiting, Abdominal Pain Past Medical History PAST MEDICAL HISTORY: High Lipids, HTN Surgical History: Hysterectomy HOMICIDE DETECTIVE History: Denies all HOMICIDE DETECTIVE Hx Family History Family History: Reviewed,noncontributory to illness Social History Smoker: Non-Smoker Alcohol: Denies ETOH Use Drugs: Denies Drug Use Lives In: Home Constitutional: denies: chills, diaphoresis, fatigue, fever, malaise, sweats, weakness, others EENTM: denies: blurred vision, double vision, ear bleeding, ear discharge, ear drainage, ear pain, ear ringing, eye pain, eye redness, hearing loss, mouth pain, mouth swelling, nasal discharge, nose bleeding, nose congestion, nose pain, photophobia, tearing, throat pain, throat swelling, voice changes, others Respiratory: denies: cough, hemoptysis, orthopnea, SOB at rest, shortness of breath, SOB with excertion, stridor, wheezing, others Cardiovascular: denies: chest pain, dizzy spells, diaphoresis, Dyspnea on exertion, edema, irregular heart beat, left arm pain, lightheadedness, palpitations, PND, syncope, others Gastrointestinal: reports: abdominal pain, nausea, vomiting; denies: abdomen distended, blood streaked bowels, constipated, diarrhea, dysphagia, difficulty swallowing, hematemesis, melena, poor appetite, poor fluid intake, rectal bleeding, rectal pain, others Genitourinary: denies: abnormal vagina bleeding, burning, dyspareunia, dysuria, flank pain, frequency, hematuria, incontinence, pain, , vagina discharge, urgency, others Neurological: denies: dizziness, fainting, headache, left sided numbness, left sided weakness, numbness, paresthesia, pre-existing deficit, right sided numbness, right sided weakness, seizure, speech problems, tingling, tremors, weakness, others Musculoskeletal: denies: back pain, gout, joint pain, joint swelling, muscle pain, muscle stiffness, neck pain, others Integumetry: denies: bruises, change in color, change in hair/nails, dryness, laceration, lesions, lumps, rash, wounds, others Allergic/Immunocompromised: denies: Difficulty Healing, Frequent Infections, Hives, Itching, others Hematologic/Lymphatic: denies: anemia, blood clots, easy bleeding, easy bruising, swollen glands, others Endocrine: denies: excessive hunger, excessive sweating, excessive thirst, excessive urination, flushing, intolerance to cold, intolerance to heat, unexplained weight gain, unexplained weight loss, others Psychiatric: denies: anxiety, bipolar disorder, depression, hopeless, panic disorder, schizophrenia, sleepless, suicidal, others All Other Systems: Reviewed and Negative Physical Exam General Appearance: Normal HEENT: Normal ENT Inspection, Pharynx Normal, TMs Normal Neck: Full Range of Motion, Non-Tender, Normal, Normal Inspection Respiratory: Chest Non-Tender, Lungs Clear, No Accessory Muscle Use, No Respiratory Distress, Normal Breath Sounds Cardiovascular: No Edema, No JVD, No Murmur, No Gallop, Normal Peripheral P ulses, Regular Rate/Rhythm Breast Exam: Deferred Gastrointestinal: Distended, No Organomegaly, No Pulsatile Mass, Normal Bowel Sounds, Soft Genitalia: Deferred Pelvic: Deferred Rectal: Deferred Extremities: No calf tenderness, Normal capillary refill, Normal inspection, Normal range of motion, Non-tender, No pedal edema Musculoskeletal : Apperance: Normal Neurologic: Alert, charging plug placer II-XII nml as Tested, No Motor Deficits, Normal Affect, Normal Mood, No Sensory Deficits Cerebellar Function: NOT DONE Reflexes: NOT DONE Skin: Dry, Normal Color, Warm Peripheral Pulses: 3+ Radial (R), 3+ Radial (L) Lymphatic: No Adenopathy EKG EKG : Pulse Rate (adult): 71 Cardiac Rhythm: NSR Was a procedure done? Was a procedure done?: No GI differential Dx Differential Diagnosis: Constipation, Diverticular disease, Esophagitis, Gastritis/PUD, Gastroenteritis, Dehydration, Food Poisoning, Bacterial, Viral X-Ray, Labs, Meds, VS Vital Signs Date Time Temp Pulse Resp B/P (MAP) Pulse Ox O2 Delivery O2 Flow Rate FiO2 10/24/25 07:42 99.2 68 17 144/56 (85) 96 99.2 10/24/25 07:42 68 17 96 Room Air* 0 21 10/24/25 06:56 98.3 70 16 117/79 96 98.3 10/24/25 06:56 71 10/24/25 06:54 71 Lab Test 10/24/25 07:07 Range/Units White Blood Count 9.6 4.4-10.8 10^3/uL Red Blood Count 4.95 4.0-5.20 10^6/uL Hemoglobin 14.4 12.2-16.2 g/dL Hematocrit 42.4 36.0-46.0 % Mean Corpuscular Volume 85.7 80.0-100.0 fL Mean Corpuscular Hemoglobin 29.2 28.0-32.0 pg Mean Corpuscular Hemoglobin Concent 34.0 32.0-36.0 g/dL Red Cell Distribution Width 15.0 H 11.8-14.3 % Platelet Count 263 140-450 10^3/uL Mean Platelet Volume 10.1 6.9-10.8 fL Neutrophils (%) (Auto) 37.0-80.0 % Lymphocytes (%) (Auto) 10.0-50.0 % Monocytes (%) (Auto) 0.0-12.0 % Basophils (%) (Auto) 0.0-2.0 % Neutrophils # (Auto) 1.6-8.6 10 ^3/uL Lymphocytes # (Auto) 0.4-5.4 10 ^3/uL Monocytes # (Auto) 0-1.3 10 ^3/uL Differential Total Cells Counted Pending Neutrophils % (Manual) Pending Band Neutrophils % (Manual) Pending Lymphocytes % (Manual) Pending Monocytes % (Manual) Pending Eosinophils % (Manual) Pending Basophils % (Manual) Pending Metamyelocytes % (manual) Pending Myelocytes % (Manual) Pending Promyelocytes % (Manual) Pending Blast Cells % (Manual) Pending Reactive Lymphocytes Pending Platelet Estimate Pending Sodium Level 140 136-145 mmol/L Potassium Level 4.6 3.5-5.1 mmol/L Chloride Level 100 98-107 mmol/L Carbon Dioxide Level 28 20-31 mmol/L Anion Gap 12 5-15 Blood Urea Nitrogen 26 H 9-23 mg/dL Creatinine 1.31 H 0.550-1.02 mg/dL Glomerular Filtration Rate Calc 40 >90 mL/min BUN/Creatinine Ratio 19.8 10.0-20.0 Serum Glucose 173 H 74-106 mg/dL Calcium Level 10.6 H 8.7-10.4 mg/dL Current Medications Medications (Trade) Dose Ordered Sig/Citlaly Route Start Time Stop Time Status Last Admin Sodium Chloride 1,000 ml @ 150 mls/hr Q6H40M ONCE IV 10/24/25 07:00 10/24/25 13:39 10/24/25 08:00 Ondansetron HCl (Zofran) 4 mg ONCE ONCE IV 10/24/25 07:00 10/24/25 07:01 DC 10/24/25 08:00 [place] [address] Ph: [phone] DIAGNOSTIC IMAGING Diagnostic Imaging Report : [id number] Signed PATIENT: ROSSY BARNETT MACCT: [id number] UNIT: [id number] : 1940 LOC: ER ROOM / BED: / AGE / SEX: 84 / F ADM STATUS: REG ER SERVICE 0653 ORDERING PHYSICIAN: GEORGI FLETCHER MD PROCEDURE(s): ABPL - CT AB PEL WO CON-NO ORAL OR IV REASON: colitis ORDER NUMBER(s): [id number], ACCESSION NUMBER(s): [id number] EXAM: CT CT AB PEL WO CON-NO ORAL OR IV HISTORY: colitis Comparison Study: None Exam Date: 10/24/2025 07:11 AM Radiation Dose Information: CT Dose: CTDI volume is 18.68 mGy. Dose-length product is 1062.3 mGy*cm Technique: Multidetector CT of the abdomen and pelvis was performed. Imaging was performed without IV contrast. Axial, coronal and sagittal multiplanar reformats were obtained from the axial data set by the technologist. Findings: Lack of intravenous contrast compromises evaluation of perfusion and for isodense lesions. Lower chest: Bibasilar atelectasis/scarring. Liver: Unremarkable Biliary system: Cholelithiasis Spleen: Unremarkable Pancreas: Mildly atrophic. Adrenals: Mild nodular thickening bilaterally. Kidneys and ureters: No hydronephrosis. Diffuse right renal atrophy with cortical scarring. Bowel: Large complex ventral abdominal wall hernia is seen containing multiple loops of small bowel and base of cecum. Proximal loops of small bowel are diffusely dilated with transition point seen within the right lateral aspect of the opening of the abdominal wall hernia (image 21, series 601). No significant mesenteric edema. No significant ascites. Bladder: Unremarkable Reproductive organs: No abnormal mass. Lymph nodes: Unremarkable. Peritoneum: Unremarkable Vessels: Patency not evaluated on this noncontrast study. Bones and soft tissue: No aggressive osseous lesion. Right hip fixation hardware. IMPRESSION: Small-bowel obstruction with transition point seen within the right lateral aspect of the large complex abdominal wall hernia. Cholelithiasis. ATED BY: CHRISTINE ZEE MD DICTATED DATE/TIME: 10/24/25748 SIGNED BY: CHRISTIEN ZEE MD SIGNED DATE/TIME: 10/24/25748 CC: [place] [address] Ph: [phone] DIAGNOSTIC IMAGING Diagnostic Imaging Report : [id number] Signed PATIENT: ROSSY BARNETT MACCT: [id number] UNIT: [id number] : 1940 LOC: ER ROOM / BED: / AGE / SEX: 84 / F ADM STATUS: REG ER SERVICE 1 ORDERING PHYSICIAN: GEORGI FLETCHER MD PROCEDURE(s): CXRP - CHEST PORTABLE REASON: sob ORDER NUMBER(s): [id number], ACCESSION NUMBER(s): [id number] CHEST RADIOGRAPH Indication: sob Technique: Single frontal view of the chest was obtained COMPARISON: XY CHEST PORTABLE on DOS: 07/29/25 FINDINGS: Lines and Tubes: None Lungs: Increased interstitial prominence. This may represent pulmonary vascular congestion and/or viral pneumonia. Pleura: Small left pleural effusion.No pneumothorax. Cardiomediastinal contours: Unremarkable Bones: Unremarkable IMPRESSION: Increased interstitial prominence. This may represent pulmonary vascular congestion and/or viral pneumonia. Small left pleural effusion. ATED BY: ARI PANDEY MD DICTATED DATE/TIME: 10/24/25738 SIGNED BY: ARI PANDEY MD SIGNED DATE/TIME: 10/24/25738 CC: Patient alert. Came in because of abdominal pain nausea vomiting. Abdomen is distended. Vitals stable. Answering questions. Chest x-ray reviewed does show congestion with pneumonia. CT of the abdomen reviewed does show small bowel obstruction. Placed an NG tube. Surgical consultation. Establish intravenous access. Was given Rocephin. Was given azithromycin. Explained to the patient. Continue monitoring. Time of 1ST Reevaluation: 07:20 Reevaluation 1ST: Unchanged Patient Education/Counseling: Diagnosis, Treatment, Prognosis Family Education/Counseling: No Family Present SEPSIS Sepsis Screen Physician Orders Complete Blood Count (10/24/25 06:52) Chest Portable (10/24/25 06:52) Urinalysis (10/24/25 06:52) Sodium Chloride 0.9% (10/24/25 07:00) Ct Ab Pel Wo Con-No Oral Or Iv (10/24/25 06:53) Manual Differential (10/24/25 07:07) Vital Signs Date Time Temp Pulse Resp B/P (MAP) Pulse Ox O2 Delivery O2 Flow Rate FiO2 10/24/25 07:42 99.2 68 17 144/56 (85) 96 99.2 10/24/25 07:42 68 17 96 Room Air* 0 21 10/24/25 06:56 98.3 70 16 117/79 96 98.3 10/24/25 06:56 71 10/24/25 06:54 71 Laboratory Tests Test 10/24/25 07:07 White Blood Count 9.6 10^3/uL (4.4-10.8) Medications Medications Dose Ordered Sig/Citlaly Route Start Time Stop Time Status Last Admin Dose Admin Ondansetron HCl 4 mg ONCE ONCE IV 10/24/25 07:00 10/24/25 07:01 DC 10/24/25 08:00 Sodium Chloride 1,000 ml @ 150 mls/hr Q6H40M ONCE IV 10/24/25 07:00 10/24/25 13:39 10/24/25 08:00 Departure 1 Departure Time of Disposition: 09:43 Impression: Primary Impression: Small bowel obstruction Additional Impression: Pneumonitis Disposition: 09 ADMITTED INPATIENT Admit to: Med Surg Condition: Guarded Critical Care Note Critical Care Time?: Yes (90 min-critical care time only) Stability Stability form required: No Heart Score Heart Score: Heart Score Response (Comments) Value History Slightly Suspicious 0 EKG Normal 0 Age >65 2 Risk Factors >3 or Hx ASHD 2 Troponin Normal limit 0 Total 4 I personally scribed for GEORGI FLETCHER MD ([email or web address]) on 10/24/25 at 06:55. Electronically submitted by Ani Johnson ([email or web address]). I personally scribed for GEORGI FLETCHER MD ([email or web address]) on 10/24/25 at 06:56. Electronically submitted by Ani Johnson ([email or web address]). I personally scribed for GEORGI FLETCHER MD ([email or web address]) on 10/24/25 at 08:38. Electronically submitted by Ani Johnson ([email or web address]). GEORGI FLETCHER MD Oct 24, 2025 06:55
--- NOTE | 2025-10-24 06:58 | ECG ---
[facility] Test Date: 2025-10-24 Test Time: 06:54:01 Pat Name: ROSSY BARNETT Department: ED Room: 0248T Gender: F Skin Tanner: BENJAMIN : 1940 Requested By: EMERGENCY EMERGENCY Order Number: [id number] Reading MD: Bj De La Cruz Measurements Intervals Delta Rate: 71 P: 51 AK: 174 QRS: -52 QRSD: 110 T: 53 QT: 400 QTc: 435 Interpretive Statements Sinus rhythm Incomplete RBBB and LAFB Anterior infarct, old ST elevation, consider inferior injury Electronically Signed On 10-25-2025 17:47:12 PST by Bj De La Cruz Please click the below link to view image of tracing.
[2025-10-24] MEDS: SODIUM CHLORIDE 0.9% 1,000 ML IV ONE ×2 (07:00→08:00)
[2025-10-24 07:29] LABS: Hematocrit 42.4 % (36.0-46.0); Hemoglobin 14.4 g/dL (12.2-16.2); Mean Corpuscular Hemoglobin 29.2 pg (28.0-32.0); Mean Corpuscular Volume 85.7 fL (80.0-100.0)
[2025-10-24 07:42] VITALS: PULSE 68; RESP 17; O2SAT 96
--- NOTE | 2025-10-24 07:42 | DVH ---
CHEST RADIOGRAPH Indication: sob Technique: Single frontal view of the chest was obtained COMPARISON: XY CHEST PORTABLE on DOS: 07/29/25 FINDINGS: Lines and Tubes: None Lungs: Increased interstitial prominence. This may represent pulmonary vascular congestion and/or viral pneumonia. Pleura: Small left pleural effusion.No pneumothorax. Cardiomediastinal contours: Unremarkable Bones: Unremarkable IMPRESSION: Increased interstitial prominence. This may represent pulmonary vascular congestion and/or viral pneumonia. Small left pleural effusion.
[2025-10-24 07:49] LABS: Chloride 100 mmol/L (98-107); Sodium 140 mmol/L (136-145)
[2025-10-24 07:50] LABS: Anion Gap 12 (5-15); Carbon Dioxide 28 mmol/L (20-31)
[2025-10-24 07:52] LABS: Calcium 10.6 mg/dL (8.7-10.4); Potassium 4.6 mmol/L (3.5-5.1)
--- NOTE | 2025-10-24 07:52 | DVH ---
EXAM: CT CT AB PEL WO CON-NO ORAL OR IV HISTORY: colitis Comparison Study: None Exam Date: 10/24/2025 07:11 AM Radiation Dose Information: CT Dose: CTDI volume is 18.68 mGy. Dose-length product is 1062.3 mGy*cm Technique: Multidetector CT of the abdomen and pelvis was performed. Imaging was performed without IV contrast. Axial, coronal and sagittal multiplanar reformats were obtained from the axial data set by the technologist. Findings: Lack of intravenous contrast compromises evaluation of perfusion and for isodense lesions. Lower chest: Bibasilar atelectasis/scarring. Liver: Unremarkable Biliary system: Cholelithiasis Spleen: Unremarkable Pancreas: Mildly atrophic. Adrenals: Mild nodular thickening bilaterally. Kidneys and ureters: No hydronephrosis. Diffuse right renal atrophy with cortical scarring. Bowel: Large complex ventral abdominal wall hernia is seen containing multiple loops of small bowel and base of cecum. Proximal loops of small bowel are diffusely dilated with transition point seen within the right lateral aspect of the opening of the abdominal wall hernia (image 21, series 601). No significant mesenteric edema. No significant ascites. Bladder: Unremarkable Reproductive organs: No abnormal mass. Lymph nodes: Unremarkable. Peritoneum: Unremarkable Vessels: Patency not evaluated on this noncontrast study. Bones and soft tissue: No aggressive osseous lesion. Right hip fixation hardware. IMPRESSION: Small-bowel obstruction with transition point seen within the right lateral aspect of the large complex abdominal wall hernia. Cholelithiasis.
[2025-10-24 07:57] LABS: BUN/Creatinine Ratio 19.8 (10.0-20.0); Blood Urea Nitrogen 26 mg/dL (9-23); Glucose 173 mg/dL (74-106)
[2025-10-24] MEDS: ONDANSETRON HCL 4 MG/2 ML VIAL IV ONE (08:00)
[2025-10-24] MEDS: AZITHROMYCIN 500MG/250ML 250 ML IV ONE (09:45)
[2025-10-24 10:17] LABS: Total Cells Counted 100.0 (100)
[2025-10-24] MEDS ORDERED: NITROGLYCERIN 0.4 MG SL TAB SL PRN (11:00)
[2025-10-24] MEDS ORDERED: DOCUSATE SOD 100 MG CAP PO PRN (11:00)
[2025-10-24] MEDS ORDERED: MORPHINE SULFATE INJ 2 MG/ml SYRG IV PRN ×2 (11:00)
--- NOTE | 2025-10-24 11:13 | DVHHP2 ---
History of Present Illness Reason for Visit: nausea and vomiting History of Present Illness Francisca Bhardwaj is an 84-year-old female with past medical history of hypertension, hyperlipidemia, hypothyroidism, and hernia, who came to the hospital for nausea and vomiting. patient states she was last able to eat a full meal on Thursday10/21/2025 night, she started getting sick and vomiting that night. Since Thursday she has not been able to eat or keep anything down. She called EMS yesterday due to the frequent nausea and vomiting. EMS evaluated her and said she was good to stay home. This morning she called EMS again due to the persistent nausea and vomiting and was brought in. Patient denies any abdominal pain. CT scan showed that she has a small bowel obstruction that is partial in her hernia. Patient has had a hernia for years, but has previously refused surgical treatment. Cardiovascular: HTN, hyperipidemia GI: Other (Hernia) Endocrine: Hypothyroidism Past Surgical History: Hysterectomy, Other (right hip, bladder surgery) Smoke: No ALCOHOL: none Drugs: None Lives: Alone Domestic Violence: Neg Review of Systems Constitutional: No: Fever, Chills, Sweats, Weakness, Malaise, Other Eyes: No: Pain, Vision change, Conjunctivae inflammation, Eyelid inflammation, Other, Redness ENT: No: Ear pain, Ear discharge, Nose pain, Nose discharge, Nose congestion, Mouth pain, Mouth swelling, Throat pain, Throat swelling, Other Respiratory: No: Cough, Dry, Shortness of breath, SOB with excertion, Wheezing, Hemoptysis, Pleuritic Pain, Sputum, Wheezing, Other Cardiovascular: No: Chest Pain, Palpitations, Orthopnea, Paroxysmal Noc. Dyspnea, Edema, Lt Headedness, Other Gastrointestinal: Nausea, Vomiting; No: Abdominal Pain, Diarrhea, Constipation, Melena, Hematochezia, Other Genitourinary: No Dysuria, No Frequency, No Incontinence, No Hematuria, No Retention, No Other Musculoskeletal: No: other, neck pain, shoulder pain, arm pain, back pain, hand pain, leg pain, foot pain Skin: No: Rash, Lesions, Jaundice, Bruising, Other Neurological: No: Weakness, Numbness, Incoordination, Change in speech, Confusion, Seizures, Other Allergies: Coded Allergies: NO KNOWN ALLERGIES (Unverified , 10/21/10) Exam Vital Signs Vital Signs Date Time Temp Pulse Resp B/P (MAP) Pulse Ox O2 Delivery O2 Flow Rate FiO2 10/24/25 07:42 99.2 68 17 144/56 (85) 96 99.2 10/24/25 07:42 Room Air* 0 21 General Appearance: Alert, Oriented X3, Cooperative, mild distress HEENT: Atraumatic, PERRLA, Other (Mucous membr dry) Respiratory: Clear to auscultation, Normal air movement Cardiovascular: Regular rate, Normal S1, Normal S2 Abdominal: Soft, No tenderness, Other (Large hernia to LLQ, denies any pain) Extremities: No clubbing, No cyanosis, No edema Skin: No rashes, No breakdown, No significant lesion Neuro: Normal gait, Normal speech, Strength at 5/5 X4 ext Psych/Mental Status: Mental status NL, Mood NL Labs/Xrays Labs Test 10/24/25 07:07 Range/Units White Blood Count 9.6 4.4-10.8 10^3/uL Red Blood Count 4.95 4.0-5.20 10^6/uL Hemoglobin 14.4 12.2-16.2 g/dL Hematocrit 42.4 36.0-46.0 % Mean Corpuscular Volume 85.7 80.0-100.0 fL Mean Corpuscular Hemoglobin 29.2 28.0-32.0 pg Mean Corpuscular Hemoglobin Concent 34.0 32.0-36.0 g/dL Red Cell Distribution Width 15.0 H 11.8-14.3 % Platelet Count 263 140-450 10^3/uL Mean Platelet Volume 10.1 6.9-10.8 fL Neutrophils (%) (Auto) 37.0-80.0 % Lymphocytes (%) (Auto) 10.0-50.0 % Monocytes (%) (Auto) 0.0-12.0 % Basophils (%) (Auto) 0.0-2.0 % Neutrophils # (Auto) 1.6-8.6 10 ^3/uL Lymphocytes # (Auto) 0.4-5.4 10 ^3/uL Monocytes # (Auto) 0-1.3 10 ^3/uL Differential Total Cells Counted 100.0 100 Neutrophils % (Manual) 73 37.0-80.0 Band Neutrophils % (Manual) 2 Lymphocytes % (Manual) 17 10.0-50.0 Monocytes % (Manual) 7 0-12 Eosinophils % (Manual) 0 0-7 Basophils % (Manual) 0 0.0-2.0 Metamyelocytes % (manual) 0 Myelocytes % (Manual) 0 Promyelocytes % (Manual) 0 Blast Cells % (Manual) 0 Reactive Lymphocytes 1 Platelet Estimate Adequate Large Platelets Few Sodium Level 140 136-145 mmol/L Potassium Level 4.6 3.5-5.1 mmol/L Chloride Level 100 98-107 mmol/L Carbon Dioxide Level 28 20-31 mmol/L Anion Gap 12 5-15 Blood Urea Nitrogen 26 H 9-23 mg/dL Creatinine 1.31 H 0.550-1.02 mg/dL Glomerular Filtration Rate Calc 40 >90 mL/min BUN/Creatinine Ratio 19.8 10.0-20.0 Serum Glucose 173 H 74-106 mg/dL Calcium Level 10.6 H 8.7-10.4 mg/dL CHEST RADIOGRAPH FINDINGS: Lines and Tubes: None Lungs: Increased interstitial prominence. This may represent pulmonary vascular congestion and/or viral pneumonia. Pleura: Small left pleural effusion.No pneumothorax. Cardiomediastinal contours: Unremarkable Bones: Unremarkable IMPRESSION: Increased interstitial prominence. This may represent pulmonary vascular congestion and/or viral pneumonia. Small left pleural effusion. EXAM: CT CT AB PEL WO CON-NO ORAL OR IV Findings: Lack of intravenous contrast compromises evaluation of perfusion and for isodense lesions. Lower chest: Bibasilar atelectasis/scarring. Liver: Unremarkable Biliary system: Cholelithiasis Spleen: Unremarkable Pancreas: Mildly atrophic. Adrenals: Mild nodular thickening bilaterally. Kidneys and ureters: No hydronephrosis. Diffuse right renal atrophy with cortical scarring. Bowel: Large complex ventral abdominal wall hernia is seen containing multiple loops of small bowel and base of cecum. Proximal loops of small bowel are diffusely dilated with transition point seen within the right lateral aspect of the opening of the abdominal wall hernia (image 21, series 601). No significant mesenteric edema. No significant ascites. Bladder: Unremarkable Reproductive organs: No abnormal mass. Lymph nodes: Unremarkable. Peritoneum: Unremarkable Vessels: Patency not evaluated on this noncontrast study. Bones and soft tissue: No aggressive osseous lesion. Right hip fixation hardware. IMPRESSION: Small-bowel obstruction with transition point seen within the right lateral aspect of the large complex abdominal wall hernia. Cholelithiasis. SEPSIS Sepsis Screen Date sepsis recognized/suspect: Oct 24, 2025 Time Sepsis recognized/suspect: 729 Recent Procedure: No On Antibiotic Therapy: No Respiratory Rate >20: No Heart Rate >90: No Temp<36 C (96.8 F) or >38.3 C: No SBP <90 or MAP <65 mmHG: No New Acute Mental Status Change: No Is the patient on CPAP, BIPAP,: No Physician Orders Chest Portable (10/24/25 06:52) Urinalysis (10/24/25 06:52) Sodium Chloride 0.9% (10/24/25 07:00) Ct Ab Pel Wo Con-No Oral Or Iv (10/24/25 06:53) Ng/Orogastric Tube To Lis (10/24/25 09:43) Azithromycin 500mg/250ml (Zithromax 500m (10/24/25 09:45) Admit (10/24/25 10:46) Code Status (10/24/25 10:46) 0.9% Ns 1000 Ml (10/24/25 11:00) Ondansetron Hcl (Zofran) (10/24/25 11:00) Docusate Sodium Capsule (Colace Capsule) (10/24/25 11:00) Complete Blood Count (10/25/25 04:00) Comprehensive Metabolic Panel (10/25/25 04:00) Npo (Nothing By Mouth) Diet (10/24/25 Lunch) Condition: Serious (10/24/25 10:46) Morphine Sulfate Injection (10/24/25 11:00) Nitroglycerin Sublingual (Ntrostat Subli (10/24/25 11:00) Morphine Sulfate Injection (10/24/25 11:00) Stat Ekg For Chest Pain (10/24/25 10:46) Notify Md Of Changes From Base (10/24/25 10:46) 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 (10/24/25 10:46) Emergency Dysrhythmia Protocol (10/24/25 10:46) Rhythm Strips Once Every Shift (10/24/25 10:46) Oxygen By Nasal Cannula (10/24/25 10:46) * Surgical Consult (10/24/25 ) Place Ng (10/24/25 10:46) Ceftriaxone Ivpb Rocephin (10/25/25 09:00) Metronidazole Ivpb Flagyl (10/24/25 14:00) PTPTT (10/24/25 10:46) Thyroid Stimulating Hormone (10/24/25 10:46) Echo 2d Mode Cardiac Dop (10/24/25 10:46) Vital Signs Date Time Temp Pulse Resp B/P (MAP) Pulse Ox O2 Delivery O2 Flow Rate FiO2 10/24/25 07:42 99.2 68 17 144/56 (85) 96 99.2 10/24/25 07:42 68 17 96 Room Air* 0 21 10/24/25 06:56 98.3 70 16 117/79 96 98.3 10/24/25 06:56 71 10/24/25 06:54 71 Laboratory Tests Test 10/24/25 07:07 White Blood Count 9.6 10^3/uL (4.4-10.8) Medications Medications Dose Ordered Sig/Citlaly Route Start Time Stop Time Status Last Admin Dose Admin Ondansetron HCl 4 mg ONCE ONCE IV 10/24/25 07:00 10/24/25 07:01 DC 10/24/25 08:00 4 MG Sodium Chloride 1,000 ml @ 150 mls/hr Q6H40M ONCE IV 10/24/25 07:00 10/24/25 13:39 10/24/25 08:00 150 MLS/HR Assessment/Plan Assessment/Plan Assessment: Small bowel obstruction, Hernia, Intractable nausea and vomiting, Hypertension, Hyperlipidemia, Hypothyroidism, Plan: Admit to Tele, Surgical consult, NPO, PT/PTT, TSH, ECHO, NG tube to LIS, Chest X-ray, Home medications held at this time, Plan discussed with: Patient, Daughter My Orders Orders - [employer] Procedure Category Date Status Time Admit ADMIT 10/24/25 Transmitted 10:46 Code Status CODE 10/24/25 Transmitted 10:46 0.9% Ns 1000 Ml PHA 10/24/25 Transmitted 11:00 Ondansetron Hcl PHA 10/24/25 Transmitted (Zofran) 11:00 Docusate Sodium PHA 10/24/25 Transmitted Capsule (Colace 11:00 Complete Blood Count LAB 10/25/25 Verified 04:00 Comprehensive LAB 10/25/25 Verified Metabolic Panel 04:00 Npo (Nothing By DIET 10/24/25 Transmitted Mouth) Diet Lunch Condition: Serious ANTONIO 10/24/25 Transmitted 10:46 Morphine Sulfate PHA 10/24/25 Transmitted Injection 11:00 Nitroglycerin PHA 10/24/25 Transmitted Sublingual (Ntrostat 11:00 Morphine Sulfate PHA 10/24/25 Transmitted Injection 11:00 Stat Ekg For Chest ANTONIO 10/24/25 Transmitted Pain 10:46 Notify Md Of Changes ANTONIO 10/24/25 Transmitted From Base 10:46 Marine Tower Operator For ANTONIO 10/24/25 Transmitted 24 Hours 10:46 Emergency Dysrhythmia ANTONIO 10/24/25 Transmitted Protocol 10:46 Rhythm Strips Once ANTONIO 10/24/25 Transmitted Every Shift 10:46 Oxygen By Nasal RT 10/24/25 Transmitted Cannula 10:46 * Surgical Consult CONS 10/24/[address] Ng ORDERS 10/24/25 Transmitted 10:46 Ceftriaxone Ivpb PHA 10/25/25 Transmitted Rocephin 09:00 Metronidazole Ivpb PHA 10/24/25 Transmitted Flagyl 14:00 PTPTT LAB 10/24/25 Transmitted 10:46 Thyroid Stimulating LAB 10/24/25 Verified Hormone 10:46 Echo 2d Mode Cardiac US 10/24/25 Transmitted DOP 10:46 Date of Service: Oct 24, 2025 Billing Provider: HANG OWEN Common Visit Codes: [id number] INP/OBS CARE (HIGH) HANG OWEN Oct 24, 2025 11:13
--- NOTE | 2025-10-24 11:56 | DVH ---
EXAM: XY CHEST PORTABLE Indication: s/p ng tube placement Technique: Single frontal view of the chest was obtained Comparison: XY CHEST PORTABLE on DOS: 10/24/25, XY CHEST PORTABLE on DOS: 07/29/25 FINDINGS: Lines and Tubes: Interval placement of enteric tube with tip projecting over the expected region of the stomach. Lungs: No focal consolidation. Elevation of the left hemidiaphragm with left basilar atelectasis. Pleura: No effusion. No pneumothorax. Cardiomediastinal contours: Unremarkable Bones: No acute osseous abnormality. IMPRESSION: No acute cardiopulmonary disease.
[2025-10-24 11:59] LABS: INR 1.06 (0.9-1.15); Partial Thromboplastin Time 24.3 SEC (24.5-34.5); Prothrombin Time 11.2 sec (9.3-11.8)
--- NOTE | 2025-10-24 13:17 | DVHINCON2 ---
Consultation - Surgical Date Seen: Oct 24, 2025 Referring Physician Reason for Consultation Small bowel obstruction History of Present Illness History of Present Illness Mrs. Vital Thursday is a 84-year-old female who presents to the hospital due to abdominal distention, nausea, vomiting since Thursday. She states that she has had multiple emesis episodes, vomiting green in color. States that she has never had a bowel obstruction in the past. He has also had associated abdominal pain, which she has gotten better after vomiting. States that her last bowel movement was yesterday, nonbloody. Patient has a has a large ventral hernia with bowel loops in it, states that she has had the hernia for the last 4-5 months. Past Medical/Surgical History Past Medical/Surgical History Past medical history ventral hernia, hypothyroid, hypertension Past surgical history right inguinal hernia repair, bladder surgery Family and Social History Family and Social History Family history noncontributory ETOH/T Ob/drugs denies Allergies and medications Allergies: Coded Allergies: NO KNOWN ALLERGIES (Unverified , 10/21/10) Home Meds Active Scripts Zinc Sulfate (Zinc) 220 Mg Cap, 220 MG PO DAILY, #15 CAP Prov:MILAD SALAS MD 08/01/25 Ascorbic Acid (VITAMIN C) 500 Mg Cap, 500 MG PO BID, #30 CAP Prov:MILAD SALAS MD 08/01/25 Azithromycin (Azithromycin) 500 Mg Tab, 1 TAB PO DAILY, #7 TAB Prov:MILAD SALAS MD 08/01/25 Reported Medications Meprobamate (Meprobamate) 400 Mg Tab, 1 TAB PO DAILY 10/21/10 *Ibuprofen Micronized (*Motrin) 600 Mg Tb, 1 TAB PO Q6HP PRN for MILD PAIN OR TEMP>100.4 10/21/10 Aspirin (Asa) 81 Mg Ch, 1 TAB PO DAILY 10/21/10 Propoxyphene-N W/ Apap (Darvocet-N 100) 100 Mg Tab, 1 TAB PO Q6HPRN PRN for MILD PAIN OR TEMP>100.4 10/21/10 Alendronate Sodium-Cholecalcif (Fosamax Plus D) 1 Tab Tab, 1 TAB PO DAILY 10/21/10 Levothyroxine Sodium (Levothyroxine Sodium) 75 Mcg Tab, 1 TAB PO QAM 11/22/10 Review of systems Review of Systems: Deferred Examination Vital signs Vital Signs Date Time Temp Pulse Resp B/P (MAP) Pulse Ox O2 Delivery O2 Flow Rate FiO2 10/24/25 12:09 68 18 171/65 (100) 96 10/24/25 07:42 99.2 99.2 10/24/25 07:42 Room Air* 0 21 Medications Current Medications Medications (Trade) Dose Ordered Sig/Citlaly Route PRN Reason Start Time Stop Time Status Last Admin Sodium Chloride 1,000 ml @ 100 mls/hr Q10H IV 10/24/25 11:00 UNV Ondansetron HCl (Zofran) 4 mg Q4HP PRN IV NAUSEA / VOMITING 10/24/25 11:00 UNV Docusate Sodium (Colace Capsule) 100 mg BIDPRN PRN PO FOR CONSTIPATION 10/24/25 11:00 UNV Morphine Sulfate 2 mg Q4HPRN PRN IV SEVERE PAIN (7-10 PAIN SCALE) 10/24/25 11:00 UNV Nitroglycerin (Ntrostat Sublingual) 0.4 mg Q5MINP PRN SL FOR CHEST PAIN 10/24/25 11:00 UNV Morphine Sulfate 2 mg Q30M PRN IV FOR CHEST PAIN 10/24/25 11:00 UNV Ceftriaxone Sodium 50 ml @ 100 mls/hr DAILY@09 IV 10/25/25 09:00 UNV Metronidazole 100 ml @ 100 mls/hr Q8HR IV 10/24/25 14:00 UNV Laboratory Labs Test 10/24/25 11:16 10/24/25 07:07 Range/Units Prothrombin Time 11.2 9.3-11.8 sec Prothrombin Time INR 1.06 0.9-1.15 Activated Partial Thromboplast Time 24.3 L 24.5-34.5 SEC Thyroid Stimulating Hormone (TSH) 1.05 0.55-4.78 uIU/mL White Blood Count 9.6 4.4-10.8 10^3/uL Red Blood Count 4.95 4.0-5.20 10^6/uL Hemoglobin 14.4 12.2-16.2 g/dL Hematocrit 42.4 36.0-46.0 % Mean Corpuscular Volume 85.7 80.0-100.0 fL Mean Corpuscular Hemoglobin 29.2 28.0-32.0 pg Mean Corpuscular Hemoglobin Concent 34.0 32.0-36.0 g/dL Red Cell Distribution Width 15.0 H 11.8-14.3 % Platelet Count 263 140-450 10^3/uL Mean Platelet Volume 10.1 6.9-10.8 fL Neutrophils (%) (Auto) 37.0-80.0 % Lymphocytes (%) (Auto) 10.0-50.0 % Monocytes (%) (Auto) 0.0-12.0 % Basophils (%) (Auto) 0.0-2.0 % Neutrophils # (Auto) 1.6-8.6 10 ^3/uL Lymphocytes # (Auto) 0.4-5.4 10 ^3/uL Monocytes # (Auto) 0-1.3 10 ^3/uL Differential Total Cells Counted 100.0 100 Neutrophils % (Manual) 73 37.0-80.0 Band Neutrophils % (Manual) 2 Lymphocytes % (Manual) 17 10.0-50.0 Monocytes % (Manual) 7 0-12 Eosinophils % (Manual) 0 0-7 Basophils % (Manual) 0 0.0-2.0 Metamyelocytes % (manual) 0 Myelocytes % (Manual) 0 Promyelocytes % (Manual) 0 Blast Cells % (Manual) 0 Reactive Lymphocytes 1 Platelet Estimate Adequate Large Platelets Few Sodium Level 140 136-145 mmol/L Potassium Level 4.6 3.5-5.1 mmol/L Chloride Level 100 98-107 mmol/L Carbon Dioxide Level 28 20-31 mmol/L Anion Gap 12 5-15 Blood Urea Nitrogen 26 H 9-23 mg/dL Creatinine 1.31 H 0.550-1.02 mg/dL Glomerular Filtration Rate Calc 40 >90 mL/min BUN/Creatinine Ratio 19.8 10.0-20.0 Serum Glucose 173 H 74-106 mg/dL Calcium Level 10.6 H 8.7-10.4 mg/dL Examination: GENERAL:Normal (Obese, AAO x3), HEENT:Normal (NG tube with bilious output), LUNGS:Normal (Nonlabored breathing with symmetric expansion), ABDOMEN:Normal (Large pannus, large ventral hernia loops of bowel containing, chronically incarcerated, no overlying skin changes, nontender) Problem List/Assessment/Plan Problems: (1) Partial small bowel obstruction Assessment and Plan Mrs. Bhardwaj is a 84-year-old female who presents with a partial small bowel obstruction. CT was reviewed and shows a large ventral hernia containing small bowel loops and a transition point in the right lower quadrant hernia pocket. NG tube was placed, and immediately 900 mL of bilious output was extracted. We will continue at this point with conservative management. 1. NPO 2. NG tube to low intermittent suctioned 3. Maintenance IV fluids 4. Tylenol only for pain control Plan discussed with Plan discussed with: Patient Visit Coding Surgery Date of Service if different f: Oct 24, 2025 Billing Provider: ABDOUL FELICIANO MD Surgery Visit Codes: [id number] - INP CONSULT <110 MIN ABDOUL FELICIANO MD Oct 24, 2025 13:17
[2025-10-24] MEDS: SODIUM CHLORIDE 0.9% 1,000 ML IV SCH (14:27)
[2025-10-24 19:30] VITALS: PULSE 68
--- NOTE | 2025-10-24 20:56 | DVHSR ---
APPROVED REPORT EXAM: Two-dimensional and M-mode echocardiogram with Doppler and color Doppler. Blood Pressure: 144/56 mmHg INDICATION Pre-Op RISK FACTORS Height: 5'1", Weight: 189 DIMENSIONS LVDd 3.5 (3.8-5.7cm) LA (2D) (1.9-4.0cm) Aortic Root (2.0-3.7cm) LVDs 2.4 (2.5-4.0cm) LA (MM) (1.9-4.0cm) Aortic Cusp Exc (1.5-2.0cm) EF (%) 62.0 (55-70%) Rt. Atrium (1.9-4.0cm) Asc. Aorta cm Mitral Valve Mitral Mitral Stenosis E wave 0.42m/s MV Mean GR. mmHg A wave 0.90m/s MV Peak GR. mmHg E/A ratio 0.5 2D MVA cm2 DECEL Time 361ms PRESS 1/2 Time ms Aortic Valve Aortic Valve Aortic Stenosis V1 1.16m/s AO Mean GR. 7mmHg V2 1.66m/s AO Peak GR. 11mmHg LVOT Diameter 2.0 (1.8-2.4cm) Doppler NATALIE 2.19cm2 AI P 1/2 Time 386.13ms Other Information Quality : Technically Limited Rhythm : Technically limited study due to body habitus and patient position. Conclusion MODERATE DEGREE LVH AND MODERATE DEGREE LV DIASTOLIC DYSFUNCTION LV EF IS 70% MODERATELY CALCIFIED AORTIC LEAFLETS MODERATE DEGREE AORTIC REGURGITATION NORMAL RV FUNCTION NO EFFUSION
[2025-10-25] VITALS (10 sets, daily range): BP systolic 108–159; BP diastolic 54–98; PULSE 50–66; RESP 16–19; TEMP 97.5–98.9; O2SAT 92–100
[2025-10-25] MEDS ORDERED: PRAV20TA3 PO (00:56)
[2025-10-25] MEDS ORDERED: HYDR25TA4 PO (00:56)
[2025-10-25] MEDS ORDERED: LOSA-534 PO (00:56)
[2025-10-25] MEDS ORDERED: CHOL20007 PO (00:56)
[2025-10-25] MEDS ORDERED: LEVO88TA4 PO (00:56)
[2025-10-25 07:46] LABS: Hematocrit 41.2 % (36.0-46.0); Hemoglobin 13.6 g/dL (12.2-16.2); Mean Corpuscular Hemoglobin 28.6 pg (28.0-32.0); Mean Corpuscular Volume 86.4 fL (80.0-100.0); Nucleated Red Blood Cells % 0.1 %
[2025-10-25 08:30] LABS: Chloride 104 mmol/L (98-107); Sodium 144 mmol/L (136-145); Total Protein 6.4 g/dL (5.7-8.2)
[2025-10-25 08:31] LABS: Albumin 3.9 g/dL (3.2-4.8); Bilirubin, Total 0.4 mg/dL (0.2-1.0)
[2025-10-25 08:32] LABS: BUN/Creatinine Ratio 26.0 (10.0-20.0)
[2025-10-25 08:33] LABS: Anion Gap 12 (5-15)
[2025-10-25 08:38] LABS: Alanine Aminotransferase 32 U/L (7-40); Alkaline Phosphatase 36 U/L (46-116); Blood Urea Nitrogen 34 mg/dL (9-23); Carbon Dioxide 28 mmol/L (20-31); Glucose 118 mg/dL (74-106); Potassium 4.6 mmol/L (3.5-5.1)
[2025-10-25 08:39] LABS: Calcium 9.3 mg/dL (8.7-10.4)
[2025-10-25] MEDS: ONDANSETRON HCL 4 MG/2 ML VIAL IV PRN (09:37)
--- NOTE | 2025-10-25 13:58 | DVHPN2 ---
Progress Note - Surgical Date Seen: Oct 25, 2025 Post op day Post op day: 0 Subjective Patient reports: No new complaints (Patient not feeling as distended as yesterday, afebrile with vital stable, no abdominal pain complaints not passing flatus.) Review of Systems: Deferred Objective Vital signs Vital Sign Date Time Temp Pulse Resp B/P (MAP) Pulse Ox O2 Delivery O2 Flow Rate FiO2 10/25/25 12:34 98.9 58 19 133/76 (95) 98 98.9 10/25/25 08:00 Nasal Cannula* 2 28 Total Intake and Output 10/24/25 10/24/25 10/25/25 15:00 23:00 07:00 Intake Total 100 ml Output Total 900 ml 200 ml Balance -900 ml -200 ml 100 ml Medications Current Medications Medications Dose Ordered Sig/Citlaly Route Start Time Stop Time Status Last Admin Dose Admin Sodium Chloride 1,000 ml @ 100 mls/hr Q10H IV 10/24/25 11:00 10/25/25 08:51 100 MLS/HR Ondansetron HCl 4 mg Q4HP PRN IV 10/24/25 11:00 10/25/25 09:37 4 MG Docusate Sodium 100 mg BIDPRN PRN PO 10/24/25 11:00 Morphine Sulfate 2 mg Q4HPRN PRN IV 10/24/25 11:00 Nitroglycerin 0.4 mg Q5MINP PRN SL 10/24/25 11:00 Morphine Sulfate 2 mg Q30M PRN IV 10/24/25 11:00 Ceftriaxone Sodium 50 ml @ 100 mls/hr DAILY@09 IV 10/25/25 09:00 10/25/25 08:51 100 MLS/HR Metronidazole 100 ml @ 100 mls/hr Q8HR IV 10/24/25 14:00 10/25/25 13:47 100 MLS/HR Laboratory Laboratory Tests 10/25/25 07:20 Test 10/25/25 07:20 Range/Units Serum Glucose 118 H 74-106 mg/dL Microbiology Date/Time Source Procedure Growth Status 10/24/25 12:59 Blood Blood Culture - Preliminary NO GROWTH AFTER 24 HOURS OF INCUBATION. Resulted Examination: GENERAL:Normal (aaO x3), HEENT:Normal (NG tube in place with 1300 mL output bilious since placement), LUNGS:Normal (Nonlabored breathing with symmetric expansion), ABDOMEN:Abnormal (Mild distention, soft, depressible, large ventral hernia, chronically incarcerated, nontender) Labs and/or images reviewed: Labs reviewed by me (No leukocytosis) Problem List/Assessment/Plan Assessment and Plan Mrs. Bhardwaj is a 84-year-old female who presents with a partial small bowel obstruction. CT was reviewed and shows a large ventral hernia containing small bowel loops and a transition point in the right lower quadrant hernia pocket. NG tube was placed, and immediately 900 mL of bilious output was extracted. We will continue at this point with conservative management. Interval: Patient feeling better this morning although not passing flatus, NG tube has put out approximately 1300 mL of bilious fluid since placement. We will continue NPO except ice chips and continued decompression. Possible small bowel follow-through tomorrow 1. NPO except minimal ice chips 2. NG tube to low intermittent suctioned 3. Maintenance IV fluids 4. Tylenol only for pain control 5. Possible small bowel follow-through tomorrow My Orders My Orders Orders - ABDOUL FELICIANO MD Procedure Category Date Status Time Complete Blood Count LAB 10/26/25 Verified 04:00 Basic Metabolic Panel LAB 10/26/25 Verified 04:00 Phosphorus LAB 10/26/25 Verified 04:00 Magnesium LAB 10/26/25 Verified 04:00 Lactic Acid W/ Reflex LAB 10/26/25 Verified Order 04:00 Plan discussed with Plan discussed with: Patient Visit Coding Surgery Date of Service if different f: Oct 25, 2025 Billing Provider: ABDOUL FELICIANO MD Surgery Visit Codes: [id number] INP/OBS CARE(HIGH) ABDOUL FELICIANO MD Oct 25, 2025 13:58
--- NOTE | 2025-10-25 14:52 | DVHPN2 ---
Subjective Denies pain Stable Changes from previous H/P or p: Changes Eyes: No Pain, No Vision change, No Conjunctivae inflammation, No Eyelid inflammation, No Other, No Redness ENT: No Ear pain, No Ear discharge, No Nose pain, No Nose discharge, No Nose congestion, No Mouth pain, No Mouth swelling, No Throat pain, No Throat swelling, No Other Cardiovascular: No Chest Pain, No Palpitations, No Orthopnea, No Paroxysmal Noc. Dyspnea, No Edema, No Lt Headedness, No Other Respiratory: No Cough, No Dry, No Shortness of breath, No SOB with excertion, No Wheezing, No Hemoptysis, No Pleuritic Pain, No Sputum, No Other Gastrointestinal: Nausea, Vomiting; No Abdominal Pain, No Diarrhea, No Constipation, No Melena, No Hematochezia, No Other Genitourinary: No Dysuria, No Frequency, No Incontinence, No Hematuria, No Retention, No Other Musculoskeletal: No other, No neck pain, No shoulder pain, No arm pain, No back pain, No hand pain, No leg pain, No foot pain Skin: No Rash, No Lesions, No Jaundice, No Bruising, No Other Objective Vitals Vital Signs Date Time Temp Pulse Resp B/P (MAP) Pulse Ox O2 Delivery O2 Flow Rate FiO2 10/25/25 12:34 98.9 58 19 133/76 (95) 98 98.9 10/25/25 08:00 Nasal Cannula* 2 28 Intake/Output Intake and Output 10/25/25 07:00 Intake Total 100 ml Output Total 1100 ml Balance -1000 ml Intake Oral 0 ml IV Total 100 ml Output Gastric Drainage Total 1100 ml General Appearance: Alert, Oriented X3, Cooperative, No acute distress Lungs: Clear to auscultation, Normal air movement Cardiovascular: Regular rate, Normal S1, Normal S2 Abdomen: Other (no bowel sounds) Extremities: No edema Medications Current Medications Medications Dose Ordered Sig/Citlaly Route Start Time Stop Time Status Last Admin Dose Admin Sodium Chloride 1,000 ml @ 100 mls/hr Q10H IV 10/24/25 11:00 10/25/25 08:51 100 MLS/HR Ondansetron HCl 4 mg Q4HP PRN IV 10/24/25 11:00 10/25/25 09:37 4 MG Morphine Sulfate 2 mg Q4HPRN PRN IV 10/24/25 11:00 Nitroglycerin 0.4 mg Q5MINP PRN SL 10/24/25 11:00 Morphine Sulfate 2 mg Q30M PRN IV 10/24/25 11:00 Ceftriaxone Sodium 50 ml @ 100 mls/hr DAILY@09 IV 10/25/25 09:00 10/25/25 08:51 100 MLS/HR Metronidazole 100 ml @ 100 mls/hr Q8HR IV 10/24/25 14:00 10/25/25 13:47 100 MLS/HR Laboratory Results Laboratory Tests 10/25/25 07:20 Chemistry Test 10/25/25 07:20 Albumin 3.9 g/dL (3.2-4.8) Calcium Level 9.3 mg/dL (8.7-10.4) Total Protein 6.4 g/dL (5.7-8.2) LFT Test 10/25/25 07:20 Alanine Aminotransferase (ALT) 32 U/L (7-40) Alkaline Phosphatase 36 U/L (46-116) L Aspartate Amino Transferase (AST) 58 U/L (13-40) H Total Bilirubin 0.4 mg/dL (0.2-1.0) Microbiology Microbiology Date/Time Source Procedure Growth Status 10/24/25 12:59 Blood Blood Culture - Preliminary NO GROWTH AFTER 24 HOURS OF INCUBATION. Resulted Assessment/Plan Assessment/Plan Small bowel obstruction, Hernia, Intractable nausea and vomiting, Hypertension, Hyperlipidemia, Hypothyroidism, PLAN: NPO IV fluids NG tube suction Surgical consult Monitor closely IV Levothyroxine Hydralazine IV prn Full code Advance directives discussed x 16 minutes Plan discussed with: Patient Date of Service: Oct 25, 2025 Billing Provider: PASHA COLBERT MD Common Visit Codes: [id number] INP/OBS CARE(HIGH) Secondary Visit Codes: [id number] CARE PLAN 30 MINUTES PASHA COLBERT MD Oct 25, 2025 14:52
[2025-10-26] VITALS (8 sets, daily range): BP systolic 123–167; BP diastolic 56–94; PULSE 59–124; RESP 17–18; TEMP 97.4–99.3; O2SAT 93–100
[2025-10-26] MEDS: hydrALAZINE HCL 20 MG/ML VL IV PRN (00:11)
[2025-10-26 06:46] LABS: Hematocrit 42.4 % (36.0-46.0); Hemoglobin 13.8 g/dL (12.2-16.2); Mean Corpuscular Hemoglobin 28.3 pg (28.0-32.0); Mean Corpuscular Volume 86.8 fL (80.0-100.0); Nucleated Red Blood Cells % 0.2 %
[2025-10-26 06:58] LABS: Alanine Aminotransferase 21 U/L (7-40); Anion Gap 13 (5-15); BUN/Creatinine Ratio 26.2 (10.0-20.0); Blood Urea Nitrogen 22 mg/dL (9-23); Calcium 9.0 mg/dL (8.7-10.4); Carbon Dioxide 26 mmol/L (20-31); Glucose 101 mg/dL (74-106); Magnesium 2.3 mg/dL (1.6-2.6); Potassium 3.9 mmol/L (3.5-5.1); Total Protein 6.6 g/dL (5.7-8.2)
[2025-10-26 06:59] LABS: Albumin 4.0 g/dL (3.2-4.8)
[2025-10-26 07:00] LABS: Bilirubin, Total 0.4 mg/dL (0.2-1.0)
[2025-10-26 07:02] LABS: Alkaline Phosphatase 37 U/L (46-116); Chloride 107 mmol/L (98-107); Sodium 146 mmol/L (136-145)
--- NOTE | 2025-10-26 10:21 | DVHPN2 ---
Progress Note - Surgical Date Seen: Oct 26, 2025 Post op day Post op day: 0 Subjective Patient reports: Feels better (Patient feeling okay, does not feel bloated, no abdominal pain, afebrile with vital stable) Review of Systems: Deferred Objective Vital signs Vital Sign Date Time Temp Pulse Resp B/P (MAP) Pulse Ox O2 Delivery O2 Flow Rate FiO2 10/26/25 09:16 75 123/75 (91) 10/26/25 05:00 97.6 17 93 97.6 10/25/25 20:00 Nasal Cannula* 2 28 Total Intake and Output 10/25/25 10/25/25 10/26/25 15:00 23:00 07:00 Intake Total 150 ml 250 ml 1040 ml Output Total 300 ml Balance 150 ml -50 ml 1040 ml Medications Current Medications Medications Dose Ordered Sig/Citlaly Route Start Time Stop Time Status Last Admin Dose Admin Sodium Chloride 1,000 ml @ 100 mls/hr Q10H IV 10/24/25 11:00 10/26/25 03:00 100 MLS/HR Ondansetron HCl 4 mg Q4HP PRN IV 10/24/25 11:00 10/26/25 08:18 4 MG Morphine Sulfate 2 mg Q4HPRN PRN IV 10/24/25 11:00 Nitroglycerin 0.4 mg Q5MINP PRN SL 10/24/25 11:00 Morphine Sulfate 2 mg Q30M PRN IV 10/24/25 11:00 Ceftriaxone Sodium 50 ml @ 100 mls/hr DAILY@09 IV 10/25/25 09:00 10/26/25 08:27 100 MLS/HR Metronidazole 100 ml @ 100 mls/hr Q8HR IV 10/24/25 14:00 10/26/25 05:33 100 MLS/HR Hydralazine HCl 10 mg Q6HP PRN IV 10/25/25 15:00 10/26/25 08:19 10 MG Levothyroxine Sodium 50 mcg DAILY IV 10/26/25 10:00 Laboratory Laboratory Tests 10/26/25 05:58 Test 10/26/25 05:58 Range/Units Serum Glucose 101 74-106 mg/dL Microbiology Date/Time Source Procedure Growth Status 10/24/25 12:59 Blood Blood Culture - Preliminary NO GROWTH AFTER 24 HOURS OF INCUBATION. Resulted Examination: GENERAL:Normal (AAO x3), HEENT:Normal (NG tube in place with 300 mL thin gastric output), LUNGS:Normal (Nonlabored breathing with symmetric expansion), ABDOMEN:Normal (Nondistended, ventral hernia chronically incarcerated loops of bowel, no overlying skin changes, nontender, soft and depressible) Labs and/or images reviewed: Labs reviewed by me (No leukocytosis no lactic acidosis) Problem List/Assessment/Plan Assessment and Plan Mrs. Bhardwaj is a 84-year-old female who presents with a partial small bowel obstruction. CT was reviewed and shows a large ventral hernia containing small bowel loops and a transition point in the right lower quadrant hernia pocket. NG tube was placed, and immediately 900 mL of bilious output was extracted. We will continue at this point with conservative management. Interval: Patient feeling better this morning, stated that she passed flatus, NG tube put out 300 mL of thin gastric output. We will attempt small bowel follow-through this morning 1. NPO 2. NG tube to low intermittent suctioned 3. Maintenance IV fluids 4. Tylenol only for pain control 5. small bowel follow-through today My Orders My Orders Orders - ABDOUL FELICIANO MD Procedure Category Date Status Time Small Bowel Series-W XY 10/26/25 Transmitted Barium 10:17 Plan discussed with Plan discussed with: Patient Visit Coding Surgery Date of Service if different f: Oct 26, 2025 Billing Provider: ABDOUL FELICIANO MD Surgery Visit Codes: [id number] INP/OBS CARE(HIGH) ABDOUL FELICIANO MD Oct 26, 2025 10:21
[2025-10-26] MEDS: LEVOTHYROXINE SODIUM 100 MCG/5 ML INJ IV SCH (12:18)
--- NOTE | 2025-10-26 13:14 | DVHPN2 ---
Subjective Denies pain No bowel movements Changes from previous H/P or p: Changes Eyes: No Pain, No Vision change, No Conjunctivae inflammation, No Eyelid inflammation, No Other, No Redness ENT: No Ear pain, No Ear discharge, No Nose pain, No Nose discharge, No Nose congestion, No Mouth pain, No Mouth swelling, No Throat pain, No Throat swelling, No Other Cardiovascular: No Chest Pain, No Palpitations, No Orthopnea, No Paroxysmal Noc. Dyspnea, No Edema, No Lt Headedness, No Other Respiratory: No Cough, No Dry, No Shortness of breath, No SOB with excertion, No Wheezing, No Hemoptysis, No Pleuritic Pain, No Sputum, No Other Gastrointestinal: Nausea, Vomiting; No Abdominal Pain, No Diarrhea, No Constipation, No Melena, No Hematochezia, No Other Genitourinary: No Dysuria, No Frequency, No Incontinence, No Hematuria, No Retention, No Other Musculoskeletal: No other, No neck pain, No shoulder pain, No arm pain, No back pain, No hand pain, No leg pain, No foot pain Skin: No Rash, No Lesions, No Jaundice, No Bruising, No Other Objective Vitals Vital Signs Date Time Temp Pulse Resp B/P (MAP) Pulse Ox O2 Delivery O2 Flow Rate FiO2 10/26/25 12:41 98.5 72 18 132/64 (86) 99 98.5 10/26/25 08:00 Nasal Cannula* 2 28 Intake/Output Intake and Output 10/26/25 07:00 Intake Total 2440 ml Output Total 300 ml Balance 2140 ml Intake Oral 1090 ml IV Total 1350 ml Output Gastric Drainage Total 300 ml # Bowel Movements 1 General Appearance: Alert, Oriented X3, Cooperative, No acute distress Lungs: Clear to auscultation, Normal air movement Cardiovascular: Regular rate, Normal S1, Normal S2 Abdomen: Other (no bowel sounds) Extremities: No edema Medications Current Medications Medications Dose Ordered Sig/Citlaly Route Start Time Stop Time Status Last Admin Dose Admin Sodium Chloride 1,000 ml @ 100 mls/hr Q10H IV 10/24/25 11:00 10/26/25 03:00 100 MLS/HR Ondansetron HCl 4 mg Q4HP PRN IV 10/24/25 11:00 10/26/25 08:18 4 MG Morphine Sulfate 2 mg Q4HPRN PRN IV 10/24/25 11:00 Nitroglycerin 0.4 mg Q5MINP PRN SL 10/24/25 11:00 Morphine Sulfate 2 mg Q30M PRN IV 10/24/25 11:00 Ceftriaxone Sodium 50 ml @ 100 mls/hr DAILY@09 IV 10/25/25 09:00 10/26/25 08:27 100 MLS/HR Metronidazole 100 ml @ 100 mls/hr Q8HR IV 10/24/25 14:00 10/26/25 05:33 100 MLS/HR Hydralazine HCl 10 mg Q6HP PRN IV 10/25/25 15:00 10/26/25 08:19 10 MG Levothyroxine Sodium 50 mcg DAILY IV 10/26/25 10:00 10/26/25 12:18 50 MCG Laboratory Results Laboratory Tests 10/26/25 05:58 Chemistry Test 10/26/25 05:58 Albumin 4.0 g/dL (3.2-4.8) Calcium Level 9.0 mg/dL (8.7-10.4) Magnesium Level 2.3 mg/dL (1.6-2.6) Phosphorus Level 2.6 mg/dL (2.4-5.1) Total Protein 6.6 g/dL (5.7-8.2) LFT Test 10/26/25 05:58 Alanine Aminotransferase (ALT) 21 U/L (7-40) Alkaline Phosphatase 37 U/L (46-116) L Aspartate Amino Transferase (AST) 23 U/L (13-40) Total Bilirubin 0.4 mg/dL (0.2-1.0) Microbiology Microbiology Date/Time Source Procedure Growth Status 10/24/25 12:59 Blood Blood Culture - Preliminary NO GROWTH AFTER 24 HOURS OF INCUBATION. Resulted Assessment/Plan Assessment/Plan Small bowel obstruction, Hernia, Intractable nausea and vomiting, Hypertension, Hyperlipidemia, Hypothyroidism, PLAN: NPO IV fluids NG tube suction Surgical consult Monitor closely IV Levothyroxine Hydralazine IV prn Full code Advance directives discussed x 16 minutes 10/26/2025: NPO NG tube suction Bowel series to be done today Surgical consult is on the heel caser closely Plan discussed with: Patient My Orders Orders - PASHA COLBERT MD Procedure Category Date Status Time Hydralazine Injection PHA 10/25/25 In Process (Apresoline Inject 15:00 Levothyroxine PHA 10/26/25 In Process Injection (Synthroid 10:00 Date of Service: Oct 26, 2025 Billing Provider: PASHA COLBERT MD Common Visit Codes: [id number] INP/OBS CARE(HIGH) PASHA COLBERT MD Oct 26, 2025 13:14
[2025-10-27] VITALS (7 sets, daily range): BP systolic 132–180; BP diastolic 55–85; PULSE 56–72; RESP 16–20; TEMP 97.8–98.5; O2SAT 93–99
[2025-10-27 07:07] LABS: Hematocrit 41.6 % (36.0-46.0); Hemoglobin 13.7 g/dL (12.2-16.2); Mean Corpuscular Hemoglobin 29.1 pg (28.0-32.0); Mean Corpuscular Volume 88.3 fL (80.0-100.0); Nucleated Red Blood Cells % 0.8 %
[2025-10-27 08:20] LABS: Anion Gap 17 (5-15); Carbon Dioxide 22 mmol/L (20-31)
[2025-10-27 08:23] LABS: Calcium 8.4 mg/dL (8.7-10.4); Chloride 109 mmol/L (98-107); Potassium 4.4 mmol/L (3.5-5.1); Sodium 148 mmol/L (136-145)
[2025-10-27 08:26] LABS: Glucose 94 mg/dL (74-106); Magnesium 2.3 mg/dL (1.6-2.6)
[2025-10-27 08:34] LABS: BUN/Creatinine Ratio 29.7 (10.0-20.0); Blood Urea Nitrogen 27 mg/dL (9-23)
--- NOTE | 2025-10-27 10:51 | DVHPN2 ---
Progress Note - Dictate Date Seen: Oct 27, 2025 Medical Necessity Reason Pt with a Central, PICC or Fol: No Subjective E: covering for Dr. Dent. no major events o/n. no complaints. vital signs Vital Sign Date Time Temp Pulse Resp B/P (MAP) Pulse Ox O2 Delivery O2 Flow Rate FiO2 10/27/25 05:00 97.9 60 19 161/55 (90) 99 97.9 10/26/25 20:00 Nasal Cannula* 2 28 Total Intake and Output 10/26/25 10/26/25 10/27/25 15:00 23:00 07:00 Intake Total 300 ml 350 ml 100 ml Output Total 300 ml 400 ml 500 ml Balance 0 ml -50 ml -400 ml medications Current Medications Medications Dose Ordered Sig/Citlaly Route Start Time Stop Time Status Last Admin Dose Admin Sodium Chloride 1,000 ml @ 100 mls/hr Q10H IV 10/24/25 11:00 10/26/25 23:23 100 MLS/HR Ondansetron HCl 4 mg Q4HP PRN IV 10/24/25 11:00 10/26/25 08:18 4 MG Morphine Sulfate 2 mg Q4HPRN PRN IV 10/24/25 11:00 Nitroglycerin 0.4 mg Q5MINP PRN SL 10/24/25 11:00 Morphine Sulfate 2 mg Q30M PRN IV 10/24/25 11:00 Ceftriaxone Sodium 50 ml @ 100 mls/hr DAILY@09 IV 10/25/25 09:00 10/27/25 09:47 100 MLS/HR Metronidazole 100 ml @ 100 mls/hr Q8HR IV 10/24/25 14:00 10/26/25 23:23 100 MLS/HR Hydralazine HCl 10 mg Q6HP PRN IV 10/25/25 15:00 10/26/25 08:19 10 MG Levothyroxine Sodium 50 mcg DAILY IV 10/26/25 10:00 10/27/25 09:46 50 MCG objective GEN: NAD. NGT intact. ABD: soft. NT. soft ventral hernia w/o TTP. laboratory and microbiology Laboratory Tests 10/27/25 05:40 Test 10/27/25 05:40 Range/Units Serum Glucose 94 74-106 mg/dL Assessment/Plan A: 1. large ventral hernia with poss SBO P: 1. SBFT today. Plan discussed with: Patient TONY HERNANDEZ MD Oct 27, 2025 10:51
--- NOTE | 2025-10-27 12:05 | DVHPN2 ---
Subjective Denies pain No bowel movements Changes from previous H/P or p: Changes Eyes: No Pain, No Vision change, No Conjunctivae inflammation, No Eyelid inflammation, No Other, No Redness ENT: No Ear pain, No Ear discharge, No Nose pain, No Nose discharge, No Nose congestion, No Mouth pain, No Mouth swelling, No Throat pain, No Throat swelling, No Other Cardiovascular: No Chest Pain, No Palpitations, No Orthopnea, No Paroxysmal Noc. Dyspnea, No Edema, No Lt Headedness, No Other Respiratory: No Cough, No Dry, No Shortness of breath, No SOB with excertion, No Wheezing, No Hemoptysis, No Pleuritic Pain, No Sputum, No Other Gastrointestinal: Nausea, Vomiting; No Abdominal Pain, No Diarrhea, No Constipation, No Melena, No Hematochezia, No Other Genitourinary: No Dysuria, No Frequency, No Incontinence, No Hematuria, No Retention, No Other Musculoskeletal: No other, No neck pain, No shoulder pain, No arm pain, No back pain, No hand pain, No leg pain, No foot pain Skin: No Rash, No Lesions, No Jaundice, No Bruising, No Other Objective Vitals Vital Signs Date Time Temp Pulse Resp B/P (MAP) Pulse Ox O2 Delivery O2 Flow Rate FiO2 10/27/25 05:00 97.9 60 19 161/55 (90) 99 97.9 10/26/25 20:00 Nasal Cannula* 2 28 Intake/Output Intake and Output 10/27/25 07:00 Intake Total 750 ml Output Total 1200 ml Balance -450 ml Intake Oral 500 ml IV Total 250 ml Output Urine Total 500 ml Gastric Drainage Total 700 ml General Appearance: Alert, Oriented X3, Cooperative, No acute distress Lungs: Clear to auscultation, Normal air movement Cardiovascular: Regular rate, Normal S1, Normal S2 Abdomen: Other (no bowel sounds) Extremities: No edema Medications Current Medications Medications Dose Ordered Sig/Citlaly Route Start Time Stop Time Status Last Admin Dose Admin Sodium Chloride 1,000 ml @ 100 mls/hr Q10H IV 10/24/25 11:00 10/26/25 23:23 100 MLS/HR Ondansetron HCl 4 mg Q4HP PRN IV 10/24/25 11:00 10/26/25 08:18 4 MG Morphine Sulfate 2 mg Q4HPRN PRN IV 10/24/25 11:00 Nitroglycerin 0.4 mg Q5MINP PRN SL 10/24/25 11:00 Morphine Sulfate 2 mg Q30M PRN IV 10/24/25 11:00 Ceftriaxone Sodium 50 ml @ 100 mls/hr DAILY@09 IV 10/25/25 09:00 10/27/25 09:47 100 MLS/HR Metronidazole 100 ml @ 100 mls/hr Q8HR IV 10/24/25 14:00 10/26/25 23:23 100 MLS/HR Hydralazine HCl 10 mg Q6HP PRN IV 10/25/25 15:00 10/26/25 08:19 10 MG Levothyroxine Sodium 50 mcg DAILY IV 10/26/25 10:00 10/27/25 09:46 50 MCG Laboratory Results Laboratory Tests 10/27/25 05:40 Chemistry Test 10/27/25 05:40 Calcium Level 8.4 mg/dL (8.7-10.4) L Magnesium Level 2.3 mg/dL (1.6-2.6) Phosphorus Level 2.5 mg/dL (2.4-5.1) Microbiology Microbiology Date/Time Source Procedure Growth Status 10/24/25 12:59 Blood Blood Culture - Preliminary NO GROWTH AFTER 48 HOURS OF INCUBATION. Resulted Assessment/Plan Assessment/Plan Small bowel obstruction, Hernia, Intractable nausea and vomiting, Hypertension, Hyperlipidemia, Hypothyroidism, PLAN: NPO IV fluids NG tube suction Surgical consult Monitor closely IV Levothyroxine Hydralazine IV prn Full code Advance directives discussed x 16 minutes 10/26/2025: NPO NG tube suction Bowel series to be done today Surgical consult is on the rn case manager hospice closely 10/27/25: Small bowel series pending NPO NGT Surgical is following Plan discussed with: Patient Date of Service: Oct 27, 2025 Billing Provider: PASHA COLBERT MD Common Visit Codes: [id number] INP/OBS CARE(HIGH) PASHA COLBERT MD Oct 27, 2025 12:05
[2025-10-28] VITALS (9 sets, daily range): BP systolic 126–188; BP diastolic 67–85; PULSE 62–138; RESP 16–18; TEMP 97.6–98.3; O2SAT 95–98
[2025-10-28 06:46] LABS: Alanine Aminotransferase 22 U/L (7-40); Albumin 3.7 g/dL (3.2-4.8); Anion Gap 14 (5-15); BUN/Creatinine Ratio 26.7 (10.0-20.0); Blood Urea Nitrogen 20 mg/dL (9-23); Carbon Dioxide 21 mmol/L (20-31); Magnesium 2.3 mg/dL (1.6-2.6); Total Protein 6.2 g/dL (5.7-8.2)
[2025-10-28 06:47] LABS: Bilirubin, Total 0.5 mg/dL (0.2-1.0)
[2025-10-28 06:48] LABS: Calcium 8.5 mg/dL (8.7-10.4); Chloride 113 mmol/L (98-107); Potassium 3.4 mmol/L (3.5-5.1); Sodium 148 mmol/L (136-145)
[2025-10-28 06:54] LABS: Glucose 99 mg/dL (74-106)
[2025-10-28 07:39] LABS: Alkaline Phosphatase 40 U/L (46-116)
--- NOTE | 2025-10-28 09:20 | DVHPN2 ---
Progress Note - Dictate Date Seen: Oct 28, 2025 Medical Necessity Reason Pt with a Central, PICC or Fol: No Subjective E: covering for Dr. Dent. no major events o/n. no complaints. SBFT still not done. vital signs Vital Sign Date Time Temp Pulse Resp B/P (MAP) Pulse Ox O2 Delivery O2 Flow Rate FiO2 10/28/25 06:30 135/84 (101) 10/28/25 05:00 98.0 73 17 95 98.0 10/27/25 20:00 Nasal Cannula* 2 28 Total Intake and Output 10/27/25 10/27/25 10/28/25 15:00 23:00 07:00 Intake Total 50 ml 1600 ml 200 ml Balance 50 ml 1600 ml 200 ml medications Current Medications Medications Dose Ordered Sig/Citlaly Route Start Time Stop Time Status Last Admin Dose Admin Sodium Chloride 1,000 ml @ 100 mls/hr Q10H IV 10/24/25 11:00 10/27/25 22:17 100 MLS/HR Ondansetron HCl 4 mg Q4HP PRN IV 10/24/25 11:00 10/26/25 08:18 4 MG Morphine Sulfate 2 mg Q4HPRN PRN IV 10/24/25 11:00 Nitroglycerin 0.4 mg Q5MINP PRN SL 10/24/25 11:00 Morphine Sulfate 2 mg Q30M PRN IV 10/24/25 11:00 Ceftriaxone Sodium 50 ml @ 100 mls/hr DAILY@09 IV 10/25/25 09:00 10/27/25 09:47 100 MLS/HR Metronidazole 100 ml @ 100 mls/hr Q8HR IV 10/24/25 14:00 10/28/25 05:44 100 MLS/HR Hydralazine HCl 10 mg Q6HP PRN IV 10/25/25 15:00 10/28/25 05:45 10 MG Levothyroxine Sodium 50 mcg DAILY IV 10/26/25 10:00 10/27/25 09:46 50 MCG objective GEN: NAD. NGT intact. ABD: soft. NT. soft ventral hernia w/o TTP. laboratory and microbiology Laboratory Tests 10/28/25 05:50 10/27/25 05:40 Test 10/28/25 05:50 Range/Units Serum Glucose 99 74-106 mg/dL Assessment/Plan A: 1. large ventral hernia with poss SBO P: 1. SBFT today. Plan discussed with: Patient TONY HERNANDEZ MD Oct 28, 2025 09:20
[2025-10-28] MEDS: GASTROGRAFIN 120 ML SOL ONE (09:37)
--- NOTE | 2025-10-28 12:25 | DVHPN2 ---
Subjective Denies any abdominal pain No bowel movements Small bowel series to be done today Changes from previous H/P or p: Changes Eyes: No Pain, No Vision change, No Conjunctivae inflammation, No Eyelid inflammation, No Other, No Redness ENT: No Ear pain, No Ear discharge, No Nose pain, No Nose discharge, No Nose congestion, No Mouth pain, No Mouth swelling, No Throat pain, No Throat swelling, No Other Cardiovascular: No Chest Pain, No Palpitations, No Orthopnea, No Paroxysmal Noc. Dyspnea, No Edema, No Lt Headedness, No Other Respiratory: No Cough, No Dry, No Shortness of breath, No SOB with excertion, No Wheezing, No Hemoptysis, No Pleuritic Pain, No Sputum, No Other Gastrointestinal: Nausea, Vomiting; No Abdominal Pain, No Diarrhea, No Constipation, No Melena, No Hematochezia, No Other Genitourinary: No Dysuria, No Frequency, No Incontinence, No Hematuria, No Retention, No Other Musculoskeletal: No other, No neck pain, No shoulder pain, No arm pain, No back pain, No hand pain, No leg pain, No foot pain Skin: No Rash, No Lesions, No Jaundice, No Bruising, No Other Objective Vitals Vital Signs Date Time Temp Pulse Resp B/P (MAP) Pulse Ox O2 Delivery O2 Flow Rate FiO2 10/28/25 09:00 97.6 62 17 161/67 (98) 97 97.6 10/27/25 20:00 Nasal Cannula* 2 28 Intake/Output Intake and Output 10/28/25 07:00 Intake Total 1850 ml Balance 1850 ml Intake Oral 500 ml IV Total 1350 ml # Voids 5 General Appearance: Alert, Oriented X3, Cooperative, No acute distress Lungs: Clear to auscultation, Normal air movement Cardiovascular: Regular rate, Normal S1, Normal S2 Abdomen: Other (no bowel sounds) Extremities: No edema Medications Current Medications Medications Dose Ordered Sig/Citlaly Route Start Time Stop Time Status Last Admin Dose Admin Ondansetron HCl 4 mg Q4HP PRN IV 10/24/25 11:00 10/26/25 08:18 4 MG Morphine Sulfate 2 mg Q4HPRN PRN IV 10/24/25 11:00 Nitroglycerin 0.4 mg Q5MINP PRN SL 10/24/25 11:00 Morphine Sulfate 2 mg Q30M PRN IV 10/24/25 11:00 Ceftriaxone Sodium 50 ml @ 100 mls/hr DAILY@09 IV 10/25/25 09:00 10/27/25 09:47 100 MLS/HR Metronidazole 100 ml @ 100 mls/hr Q8HR IV 10/24/25 14:00 10/28/25 05:44 100 MLS/HR Hydralazine HCl 10 mg Q6HP PRN IV 10/25/25 15:00 10/28/25 05:45 10 MG Levothyroxine Sodium 50 mcg DAILY IV 10/26/25 10:00 10/27/25 09:46 50 MCG Potassium Chloride/Dextrose/ Sod Cl 1,000 ml @ 100 mls/hr Q10H IV 10/28/25 09:30 Laboratory Results Laboratory Tests 10/27/25 05:40 10/28/25 05:50 Chemistry Test 10/28/25 05:50 Albumin 3.7 g/dL (3.2-4.8) Calcium Level 8.5 mg/dL (8.7-10.4) L Magnesium Level 2.3 mg/dL (1.6-2.6) Total Protein 6.2 g/dL (5.7-8.2) LFT Test 10/28/25 05:50 Alanine Aminotransferase (ALT) 22 U/L (7-40) Alkaline Phosphatase 40 U/L (46-116) L Aspartate Amino Transferase (AST) 31 U/L (13-40) Total Bilirubin 0.5 mg/dL (0.2-1.0) Microbiology Microbiology Date/Time Source Procedure Growth Status 10/24/25 12:59 Blood Blood Culture - Preliminary NO GROWTH AFTER 72 HOURS OF INCUBATION. Resulted Assessment/Plan Assessment/Plan Small bowel obstruction, Hernia, Intractable nausea and vomiting, Hypertension, Hyperlipidemia, Hypothyroidism, PLAN: NPO IV fluids NG tube suction Surgical consult Monitor closely IV Levothyroxine Hydralazine IV prn Full code Advance directives discussed x 16 minutes 10/26/2025: NPO NG tube suction Bowel series to be done today Surgical consult is on the case management coordinator closely 10/27/25: Small bowel series pending NPO NGT Surgical is following 10/28/2025: Continue the current management NPO Small bowel series follow-through today Surgery is following IV fluids Hypokalemia Hypernatremia: Change IV fluids to D5 half NS with potassium Pain management as needed Plan discussed with: Patient Date of Service: Oct 28, 2025 Billing Provider: PASHA COLBERT MD Common Visit Codes: [id number] INP/OBS CARE(HIGH) PASHA COLBERT MD Oct 28, 2025 12:25
[2025-10-28] MEDS: D5W/SOD CHL 0.45%/KCL 20MEQ 1,000 ML IV SCH (12:27)
--- NOTE | 2025-10-28 16:35 | DVH ---
Procedure: XY SMALL BOWEL SERIES-W GASTROGRA Reason for study/Clinical History: PSBO Comparison Study: None Technique: Single contrast small bowel series performed. FINDINGS/IMPRESSION: Initial station superintendent view of the abdomen and pelvis appears demonstrates no acute process. Contrast is identified within the colon by 3.75 hours. This represents a normal small bowel transit time. Visualized is a left inguinal hernia containing descending colon. It is opacified and therefore nonobstructing.
[2025-10-29] VITALS (11 sets, daily range): BP systolic 131–166; BP diastolic 55–80; PULSE 62–163; RESP 16–20; TEMP 98–98.9; O2SAT 95–98
[2025-10-29 05:57] LABS: Hematocrit 42.5 % (36.0-46.0); Hemoglobin 13.8 g/dL (12.2-16.2); Mean Corpuscular Hemoglobin 28.1 pg (28.0-32.0); Mean Corpuscular Volume 86.4 fL (80.0-100.0); Nucleated Red Blood Cells % 0.1 %
[2025-10-29 06:42] LABS: Alanine Aminotransferase 24 U/L (7-40); Albumin 3.8 g/dL (3.2-4.8); Anion Gap 12 (5-15); BUN/Creatinine Ratio 22.7 (10.0-20.0); Blood Urea Nitrogen 15 mg/dL (9-23); Calcium 8.9 mg/dL (8.7-10.4); Carbon Dioxide 25 mmol/L (20-31); Magnesium 2.4 mg/dL (1.6-2.6); Total Protein 6.2 g/dL (5.7-8.2)
[2025-10-29 06:43] LABS: Bilirubin, Total 0.5 mg/dL (0.2-1.0)
[2025-10-29 06:44] LABS: Alkaline Phosphatase 40 U/L (46-116); Chloride 115 mmol/L (98-107); Glucose 141 mg/dL (74-106); Potassium 3.3 mmol/L (3.5-5.1); Sodium 152 mmol/L (136-145)
[2025-10-29] MEDS: POTASSIUM CHL 20MEQ/100ML 100 ML IV ONE (09:56)
[2025-10-29] MEDS: AMIODARONE BOLUS KIT 100 ML IV ONE (10:54)
--- NOTE | 2025-10-29 11:38 | DVHPN2 ---
Subjective The patient went into atrial fibrillation with rapid ventricular response this morning Heart rate 120 - 140 Changes from previous H/P or p: Changes Eyes: No Pain, No Vision change, No Conjunctivae inflammation, No Eyelid inflammation, No Other, No Redness ENT: No Ear pain, No Ear discharge, No Nose pain, No Nose discharge, No Nose congestion, No Mouth pain, No Mouth swelling, No Throat pain, No Throat swelling, No Other Cardiovascular: No Chest Pain, No Palpitations, No Orthopnea, No Paroxysmal Noc. Dyspnea, No Edema, No Lt Headedness, No Other Respiratory: No Cough, No Dry, No Shortness of breath, No SOB with excertion, No Wheezing, No Hemoptysis, No Pleuritic Pain, No Sputum, No Other Gastrointestinal: Nausea, Vomiting; No Abdominal Pain, No Diarrhea, No Constipation, No Melena, No Hematochezia, No Other Genitourinary: No Dysuria, No Frequency, No Incontinence, No Hematuria, No Retention, No Other Musculoskeletal: No other, No neck pain, No shoulder pain, No arm pain, No back pain, No hand pain, No leg pain, No foot pain Skin: No Rash, No Lesions, No Jaundice, No Bruising, No Other Objective Vitals Vital Signs Date Time Temp Pulse Resp B/P (MAP) Pulse Ox O2 Delivery O2 Flow Rate FiO2 10/29/25 09:00 98.0 65 20 149/66 (93) 95 98.0 10/28/25 20:00 Nasal Cannula* 2 28 Intake/Output Intake and Output 10/29/25 07:00 Intake Total 150 ml Output Total 100 ml Balance 50 ml Intake Oral 0 ml IV Total 150 ml Gastric Drainage Total 100 ml # Voids 4 # Bowel Movements 11 General Appearance: Alert, Oriented X3, Cooperative, No acute distress Lungs: Clear to auscultation, Normal air movement Cardiovascular: Regular rate, Normal S1, Normal S2 Abdomen: Other (no bowel sounds) Extremities: No edema Medications Current Medications Medications Dose Ordered Sig/Citlaly Route Start Time Stop Time Status Last Admin Dose Admin Ondansetron HCl 4 mg Q4HP PRN IV 10/24/25 11:00 10/26/25 08:18 4 MG Morphine Sulfate 2 mg Q4HPRN PRN IV 10/24/25 11:00 Nitroglycerin 0.4 mg Q5MINP PRN SL 10/24/25 11:00 Morphine Sulfate 2 mg Q30M PRN IV 10/24/25 11:00 Ceftriaxone Sodium 50 ml @ 100 mls/hr DAILY@09 IV 10/25/25 09:00 10/29/25 08:33 100 MLS/HR Metronidazole 100 ml @ 100 mls/hr Q8HR IV 10/24/25 14:00 10/29/25 05:20 100 MLS/HR Hydralazine HCl 10 mg Q6HP PRN IV 10/25/25 15:00 10/29/25 05:19 10 MG Levothyroxine Sodium 50 mcg DAILY IV 10/26/25 10:00 10/29/25 08:33 50 MCG Dextrose 1,000 ml @ 100 mls/hr Q10H IV 10/29/25 09:30 Amiodarone HCl 250 ml @ 16.66 mls/ hr Q15H1M IV 10/29/25 15:45 Laboratory Results Laboratory Tests 10/29/25 05:23 Chemistry Test 10/29/25 05:23 Albumin 3.8 g/dL (3.2-4.8) Calcium Level 8.9 mg/dL (8.7-10.4) Magnesium Level 2.4 mg/dL (1.6-2.6) Total Protein 6.2 g/dL (5.7-8.2) LFT Test 10/29/25 05:23 Alanine Aminotransferase (ALT) 24 U/L (7-40) Alkaline Phosphatase 40 U/L (46-116) L Aspartate Amino Transferase (AST) 37 U/L (13-40) Total Bilirubin 0.5 mg/dL (0.2-1.0) Microbiology Microbiology Date/Time Source Procedure Growth Status 10/24/25 12:59 Blood Blood Culture - Preliminary NO GROWTH AFTER 72 HOURS OF INCUBATION. Resulted Assessment/Plan Assessment/Plan Small bowel obstruction, Hernia, Intractable nausea and vomiting, Hypertension, Hyperlipidemia, Hypothyroidism, PLAN: NPO IV fluids NG tube suction Surgical consult Monitor closely IV Levothyroxine Hydralazine IV prn Full code Advance directives discussed x 16 minutes 10/26/2025: NPO NG tube suction Bowel series to be done today Surgical consult is on the heel caser closely 10/27/25: Small bowel series pending NPO NGT Surgical is following 10/28/2025: Continue the current management NPO Small bowel series follow-through today Surgery is following IV fluids Hypokalemia Hypernatremia: Change IV fluids to D5 half NS with potassium Pain management as needed 10/29/2025: AFib with RVR: Start amiodarone drip, Lovenox Bowel obstruction: Bowel studies negative for obstruction Remove the NG tube, clear liquid diet Left inguinal hernia with large bowel involvement but no obstruction: Surgery is following Hypernatremia: Change IV fluids to D5W Hypokalemia: Replace IV Magnesium is good level Monitor closely Change the levothyroxine to p.o. Plan discussed with: Patient My Orders Orders - PASHA COLBERT MD Procedure Category Date Status Time D5w 5% (Dextrose 5%) PHA 10/29/25 In Process 09:30 Amiodarone PHA 10/29/25 In Process 450mg/250ml Ae 09:45 Amiodarone PHA 10/29/25 In Process 450mg/250ml Ae 15:45 Clear Liq Diet DIET 10/29/25 Transmitted Lunch Date of Service: Oct 29, 2025 Billing Provider: PASHA COLBERT MD Common Visit Codes: [id number] INP/OBS CARE(HIGH) PASHA COLBERT MD Oct 29, 2025 11:38
[2025-10-29] MEDS: D5W 5% 1,000 ML IV SCH (12:57)
[2025-10-29] MEDS: ENOXAPARIN SOD 80 MG/0.8ML SYRINGE SC ONE (14:23)
--- NOTE | 2025-10-29 15:19 | DVHPN2 ---
Progress Note - Dictate Date Seen: Oct 29, 2025 Medical Necessity Reason Pt with a Central, PICC or Fol: No Subjective E: covering for Dr. Dent. no major events o/n. feeling much better. vital signs Vital Sign Date Time Temp Pulse Resp B/P (MAP) Pulse Ox O2 Delivery O2 Flow Rate FiO2 10/29/25 12:27 98.9 68 20 144/55 (84) 97 98.9 10/28/25 20:00 Nasal Cannula* 2 28 Total Intake and Output 10/28/25 10/28/25 10/29/25 15:00 23:00 07:00 Intake Total 50 ml 100 ml 0 ml Output Total 100 ml Balance -50 ml 100 ml 0 ml medications Current Medications Medications Dose Ordered Sig/Citlaly Route Start Time Stop Time Status Last Admin Dose Admin Ondansetron HCl 4 mg Q4HP PRN IV 10/24/25 11:00 10/26/25 08:18 4 MG Morphine Sulfate 2 mg Q4HPRN PRN IV 10/24/25 11:00 Nitroglycerin 0.4 mg Q5MINP PRN SL 10/24/25 11:00 Morphine Sulfate 2 mg Q30M PRN IV 10/24/25 11:00 Ceftriaxone Sodium 50 ml @ 100 mls/hr DAILY@09 IV 10/25/25 09:00 10/29/25 08:33 100 MLS/HR Metronidazole 100 ml @ 100 mls/hr Q8HR IV 10/24/25 14:00 10/29/25 14:19 100 MLS/HR Hydralazine HCl 10 mg Q6HP PRN IV 10/25/25 15:00 10/29/25 05:19 10 MG Dextrose 1,000 ml @ 100 mls/hr Q10H IV 10/29/25 09:30 10/29/25 12:57 100 MLS/HR Amiodarone HCl 250 ml @ 16.66 mls/ hr Q15H1M IV 10/29/25 15:45 Enoxaparin Sodium 80 mg Q12HR SC 10/29/25 22:00 Levothyroxine Sodium 88 mcg QAM@0600 PO 10/30/25 06:00 objective GEN: NAD. ABD: soft. much less TTP. SBFT: contrast in colon in 3 hrs. laboratory and microbiology Laboratory Tests 10/29/25 05:23 Test 10/29/25 05:23 Range/Units Serum Glucose 141 H 74-106 mg/dL Assessment/Plan A: 1. resolving pSBO 2. ventral hernia P: 1. advance diet slowly Plan discussed with: Patient TONY HERNANDEZ MD Oct 29, 2025 15:18
[2025-10-29] MEDS: ENOXAPARIN SOD 80 MG/0.8ML SYRINGE SC SCH (22:08)
[2025-10-30] VITALS (9 sets, daily range): BP systolic 137–164; BP diastolic 63–92; PULSE 51–98; RESP 16–21; TEMP 97.5–99; O2SAT 93–98
[2025-10-30] MEDS: LEVOTHYROXINE SODIUM 88 MCG TAB PO SCH (05:12)
[2025-10-30 06:18] LABS: Hematocrit 38.0 % (36.0-46.0); Hemoglobin 12.9 g/dL (12.2-16.2); Mean Corpuscular Hemoglobin 28.9 pg (28.0-32.0); Mean Corpuscular Volume 85.0 fL (80.0-100.0); Nucleated Red Blood Cells % 0.0 %
[2025-10-30 06:40] LABS: Alanine Aminotransferase 20 U/L (7-40); Albumin 3.2 g/dL (3.2-4.8); Anion Gap 11 (5-15); BUN/Creatinine Ratio 22.1 (10.0-20.0); Blood Urea Nitrogen 15 mg/dL (9-23); Carbon Dioxide 24 mmol/L (20-31); Magnesium 2.0 mg/dL (1.6-2.6); Sodium 145 mmol/L (136-145)
[2025-10-30 06:41] LABS: Bilirubin, Total 0.6 mg/dL (0.2-1.0)
[2025-10-30 06:45] LABS: Alkaline Phosphatase 36 U/L (46-116); Calcium 8.3 mg/dL (8.7-10.4); Chloride 110 mmol/L (98-107); Glucose 110 mg/dL (74-106); Potassium 3.0 mmol/L (3.5-5.1); Total Protein 5.6 g/dL (5.7-8.2)
--- NOTE | 2025-10-30 10:14 | DVHPN2 ---
Subjective Doing well Heart rate is in the 50s now on amiodarone drip Sinus rhythm No abdominal pain No diarrhea no vomiting Changes from previous H/P or p: Changes Eyes: No Pain, No Vision change, No Conjunctivae inflammation, No Eyelid inflammation, No Other, No Redness ENT: No Ear pain, No Ear discharge, No Nose pain, No Nose discharge, No Nose congestion, No Mouth pain, No Mouth swelling, No Throat pain, No Throat swelling, No Other Cardiovascular: No Chest Pain, No Palpitations, No Orthopnea, No Paroxysmal Noc. Dyspnea, No Edema, No Lt Headedness, No Other Respiratory: No Cough, No Dry, No Shortness of breath, No SOB with excertion, No Wheezing, No Hemoptysis, No Pleuritic Pain, No Sputum, No Other Gastrointestinal: Nausea, Vomiting; No Abdominal Pain, No Diarrhea, No Constipation, No Melena, No Hematochezia, No Other Genitourinary: No Dysuria, No Frequency, No Incontinence, No Hematuria, No Retention, No Other Musculoskeletal: No other, No neck pain, No shoulder pain, No arm pain, No back pain, No hand pain, No leg pain, No foot pain Skin: No Rash, No Lesions, No Jaundice, No Bruising, No Other Objective Vitals Vital Signs Date Time Temp Pulse Resp B/P (MAP) Pulse Ox O2 Delivery O2 Flow Rate FiO2 10/30/25 05:06 150/92 (111) 10/30/25 04:34 98.4 64 18 93 98.4 10/29/25 20:00 Nasal Cannula* 2 28 Intake/Output Intake and Output 10/30/25 07:00 Intake Total 1223 ml Balance 1223 ml Intake Oral 740 ml IV Total 483 ml # Voids 4 General Appearance: Alert, Oriented X3, Cooperative, No acute distress Lungs: Clear to auscultation, Normal air movement Cardiovascular: Regular rate, Normal S1, Normal S2 Abdomen: Other (no bowel sounds) Extremities: No edema Medications Current Medications Medications Dose Ordered Sig/Citlaly Route Start Time Stop Time Status Last Admin Dose Admin Ondansetron HCl 4 mg Q4HP PRN IV 10/24/25 11:00 10/26/25 08:18 4 MG Morphine Sulfate 2 mg Q4HPRN PRN IV 10/24/25 11:00 Nitroglycerin 0.4 mg Q5MINP PRN SL 10/24/25 11:00 Morphine Sulfate 2 mg Q30M PRN IV 10/24/25 11:00 Ceftriaxone Sodium 50 ml @ 100 mls/hr DAILY@09 IV 10/25/25 09:00 10/30/25 08:36 100 MLS/HR Metronidazole 100 ml @ 100 mls/hr Q8HR IV 10/24/25 14:00 10/30/25 05:12 100 MLS/HR Hydralazine HCl 10 mg Q6HP PRN IV 10/25/25 15:00 10/29/25 22:09 10 MG Dextrose 1,000 ml @ 100 mls/hr Q10H IV 10/29/25 09:30 10/30/25 05:30 100 MLS/HR Enoxaparin Sodium 80 mg Q12HR SC 10/29/25 22:00 10/30/25 08:36 80 MG Levothyroxine Sodium 88 mcg QAM@0600 PO 10/30/25 06:00 10/30/25 05:12 88 MCG Losartan Potassium 50 mg DAILY PO 10/31/25 10:00 UNV Laboratory Results Laboratory Tests 10/30/25 05:40 Chemistry Test 10/30/25 05:40 Albumin 3.2 g/dL (3.2-4.8) Calcium Level 8.3 mg/dL (8.7-10.4) L Magnesium Level 2.0 mg/dL (1.6-2.6) Total Protein 5.6 g/dL (5.7-8.2) L LFT Test 10/30/25 05:40 Alanine Aminotransferase (ALT) 20 U/L (7-40) Alkaline Phosphatase 36 U/L (46-116) L Aspartate Amino Transferase (AST) 26 U/L (13-40) Total Bilirubin 0.6 mg/dL (0.2-1.0) Microbiology Microbiology Date/Time Source Procedure Growth Status 10/24/25 12:59 Blood Blood Culture - Final NO GROWTH AFTER 5 DAYS OF INCUBATION. Complete Assessment/Plan Assessment/Plan Small bowel obstruction, Hernia, Intractable nausea and vomiting, Hypertension, Hyperlipidemia, Hypothyroidism, PLAN: NPO IV fluids NG tube suction Surgical consult Monitor closely IV Levothyroxine Hydralazine IV prn Full code Advance directives discussed x 16 minutes 10/26/2025: NPO NG tube suction Bowel series to be done today Surgical consult is on the upper caser closely 10/27/25: Small bowel series pending NPO NGT Surgical is following 10/28/2025: Continue the current management NPO Small bowel series follow-through today Surgery is following IV fluids Hypokalemia Hypernatremia: Change IV fluids to D5 half NS with potassium Pain management as needed 10/29/2025: AFib with RVR: Start amiodarone drip, Lovenox Bowel obstruction: Bowel studies negative for obstruction Remove the NG tube, clear liquid diet Left inguinal hernia with large bowel involvement but no obstruction: Surgery is following Hypernatremia: Change IV fluids to D5W Hypokalemia: Replace IV Magnesium is good level Monitor closely Change the levothyroxine to p.o. 10/30/2025: Atrial fibrillation, resolved: Discontinue amiodarone drip Hypertension: Restart losartan 50 mg daily for hypertension Hypokalemia: Replace potassium p.o. Partial bowel obstruction: Resolved, advance diet Generalized weakness: Start physical therapy Check oxygen on room air Continue IV antibiotics Continue IV fluids Monitor closely Discharge planning Plan discussed with: Patient My Orders Orders - PASHA COLBERT MD Procedure Category Date Status Time Enoxaparin Sodium PHA 10/29/25 In Process (Lovenox) 22:00 Discontinue Ng ORDERS 10/29/25 Transmitted 11:37 Levothyroxine Tablet PHA 10/30/25 In Process (Synthroid Tablet) 06:00 Potassium Er Tablet PHA 10/30/25 Logged (Klor-Con Tablet) 10:15 Losartan Tablet PHA 10/31/25 Logged (Cozaar Tablet) 10:00 Losartan Tablet PHA 10/30/25 Logged (Cozaar Tablet) 10:15 Soft Diet DIET 10/30/25 Transmitted Lunch Pt Request For Service PT 10/30/25 Logged 10:07 Date of Service: Oct 30, 2025 Billing Provider: PASHA COLBERT MD Common Visit Codes: [id number] INP/OBS CARE(HIGH) PASHA COLBERT MD Oct 30, 2025 10:14
[2025-10-30] MEDS: POTASSIUM CHL 20 Meq TABLET PO ONE (10:47)
[2025-10-30] MEDS: LOSARTAN POTASSIUM 50 MG TAB PO ONE (10:47)
--- NOTE | 2025-10-30 11:34 | DVHPN2 ---
Progress Note - Surgical Date Seen: Oct 30, 2025 Post op day Post op day: 0 Subjective Review of Systems: Deferred Objective Vital signs Vital Sign Date Time Temp Pulse Resp B/P (MAP) Pulse Ox O2 Delivery O2 Flow Rate FiO2 10/30/25 10:47 158/78 10/30/25 09:00 98.3 51 19 96 98.3 10/29/25 20:00 Nasal Cannula* 2 28 Total Intake and Output 10/29/25 10/29/25 10/30/25 15:00 23:00 07:00 Intake Total 383 ml 500 ml 340 ml Balance 383 ml 500 ml 340 ml Medications Current Medications Medications Dose Ordered Sig/Citlaly Route Start Time Stop Time Status Last Admin Dose Admin Ondansetron HCl 4 mg Q4HP PRN IV 10/24/25 11:00 10/26/25 08:18 4 MG Morphine Sulfate 2 mg Q4HPRN PRN IV 10/24/25 11:00 Nitroglycerin 0.4 mg Q5MINP PRN SL 10/24/25 11:00 Morphine Sulfate 2 mg Q30M PRN IV 10/24/25 11:00 Ceftriaxone Sodium 50 ml @ 100 mls/hr DAILY@09 IV 10/25/25 09:00 10/30/25 08:36 100 MLS/HR Metronidazole 100 ml @ 100 mls/hr Q8HR IV 10/24/25 14:00 10/30/25 05:12 100 MLS/HR Hydralazine HCl 10 mg Q6HP PRN IV 10/25/25 15:00 10/29/25 22:09 10 MG Dextrose 1,000 ml @ 100 mls/hr Q10H IV 10/29/25 09:30 10/30/25 05:30 100 MLS/HR Enoxaparin Sodium 80 mg Q12HR SC 10/29/25 22:00 10/30/25 08:36 80 MG Levothyroxine Sodium 88 mcg QAM@0600 PO 10/30/25 06:00 10/30/25 05:12 88 MCG Losartan Potassium 50 mg DAILY PO 10/31/25 10:00 Laboratory Laboratory Tests 10/30/25 05:40 Test 10/30/25 05:40 Range/Units Serum Glucose 110 H 74-106 mg/dL Microbiology Date/Time Source Procedure Growth Status 10/24/25 12:59 Blood Blood Culture - Final NO GROWTH AFTER 5 DAYS OF INCUBATION. Complete Examination: GENERAL:Normal (AAO x3), LUNGS:Normal (Nonlabored breathing with symmetric expansion), ABDOMEN:Normal (Large pannus, large ventral hernia chronically incarcerated, no overlying skin changes, soft and depressible, nontender) Labs and/or images reviewed: Labs reviewed by me (No leukocytosis) Problem List/Assessment/Plan Assessment and Plan Mrs. Bhardwaj is a 84-year-old female who presents with a partial small bowel obstruction. CT was reviewed and shows a large ventral hernia containing small bowel loops and a transition point in the right lower quadrant hernia pocket. NG tube was placed, and immediately 900 mL of bilious output was extracted. We will continue at this point with conservative management. Interval: Patient feeling good, has been tolerating diet, small bowel follow- through past and had 11 bowel movements. Cleared for discharge per surgical standpoint. 1. Cleared for discharge per surgical standpoint 2. Advance diet as tolerated My Orders My Orders Orders - ABDOUL FELICIANO MD Procedure Category Date Status Time Potassium Phosphate PHA 10/30/25 In Process 10:15 Plan discussed with Plan discussed with: Patient Visit Coding Surgery Date of Service if different f: Oct 30, 2025 Billing Provider: ABDOUL FELICIANO MD Surgery Visit Codes: [id number] INP/OBS CARE(HIGH) ABDOUL FELICIANO MD Oct 30, 2025 11:34
[2025-10-30] MEDS: POTASSIUM PHOSPHATE 26.4 MEQ in SODIUM CHL 0.9% 100 ML IV ONE (13:52)
[2025-10-31] VITALS (7 sets, daily range): BP systolic 142–158; BP diastolic 60–89; PULSE 62–89; RESP 16–20; TEMP 98.2–98.7; O2SAT 94–98
[2025-10-31 07:09] LABS: Anion Gap 12 (5-15); Carbon Dioxide 21 mmol/L (20-31); Potassium 3.8 mmol/L (3.5-5.1); Sodium 142 mmol/L (136-145)
[2025-10-31 07:10] LABS: Calcium 8.8 mg/dL (8.7-10.4)
[2025-10-31 07:15] LABS: BUN/Creatinine Ratio 14.8 (10.0-20.0); Blood Urea Nitrogen 13 mg/dL (9-23); Magnesium 2.0 mg/dL (1.6-2.6)
[2025-10-31 07:19] LABS: Chloride 109 mmol/L (98-107); Glucose 109 mg/dL (74-106)
[2025-10-31] MEDS: LOSARTAN POTASSIUM 50 MG TAB PO SCH (09:15)
[2025-10-31] MEDS ORDERED: APIX5TAB PO (13:37)
--- NOTE | 2025-10-31 13:41 | DVHDS2 ---
Discharge Summary Date of Admission Oct 24, 2025 at 10:46 Date of Discharge: Oct 31, 2025 Labs/Diagnostic Data: Laboratory Results Test 10/31/25 06:09 10/30/25 05:40 10/27/25 05:40 10/24/25 11:16 Sodium Level 142 mmol/L (136-145) Potassium Level 3.8 mmol/L (3.5-5.1) Chloride Level 109 mmol/L (98-107) Carbon Dioxide Level 21 mmol/L (20-31) Anion Gap 12 (5-15) Blood Urea Nitrogen 13 mg/dL (9-23) Creatinine 0.88 mg/dL (0.550-1.02) Glomerular Filtration Rate Calc 64 mL/min (>90) BUN/Creatinine Ratio 14.8 (10.0-20.0) Serum Glucose 109 mg/dL (74-106) Calcium Level 8.8 mg/dL (8.7-10.4) Magnesium Level 2.0 mg/dL (1.6-2.6) White Blood Count 7.1 10^3/uL (4.4-10.8) Red Blood Count 4.47 10^6/uL (4.0-5.20) Hemoglobin 12.9 g/dL (12.2-16.2) Hematocrit 38.0 % (36.0-46.0) Mean Corpuscular Volume 85.0 fL (80.0-100.0) Mean Corpuscular Hemoglobin 28.9 pg (28.0-32.0) Mean Corpuscular Hemoglobin Concent 34.0 g/dL (32.0-36.0) Red Cell Distribution Width 14.8 % (11.8-14.3) Platelet Count 192 10^3/uL (140-450) Mean Platelet Volume 8.9 fL (6.9-10.8) Neutrophils (%) (Auto) 66.6 % (37.0-80.0) Lymphocytes (%) (Auto) 23.4 % (10.0-50.0) Monocytes (%) (Auto) 8.6 % (0.0-12.0) Eosinophils (%) (Auto) 0.6 % (0.0-7.0) Basophils (%) (Auto) 0.8 % (0.0-2.0) Neutrophils # (Auto) 4.8 10 ^3/uL (1.6-8.6) Lymphocytes # (Auto) 1.7 10 ^3/uL (0.4-5.4) Monocytes # (Auto) 0.6 10 ^3/uL (0-1.3) Eosinophils # (Auto) 0 10 ^3/uL (0-0.8) Basophils # (Auto) 0.1 10 ^3/uL (0-0.2) Nucleated Red Blood Cells 0.0 % Phosphorus Level 1.6 mg/dL (2.4-5.1) Total Bilirubin 0.6 mg/dL (0.2-1.0) Aspartate Amino Transferase (AST) 26 U/L (13-40) Alanine Aminotransferase (ALT) 20 U/L (7-40) Alkaline Phosphatase 36 U/L (46-116) Total Protein 5.6 g/dL (5.7-8.2) Albumin 3.2 g/dL (3.2-4.8) Lactic Acid Level 1.0 mmol/L (0.4-2.0) Prothrombin Time 11.2 sec (9.3-11.8) Prothrombin Time INR 1.06 (0.9-1.15) Activated Partial Thromboplast Time 24.3 SEC (24.5-34.5) Thyroid Stimulating Hormone (TSH) 1.05 uIU/mL (0.55-4.78) Test 10/24/25 07:07 Differential Total Cells Counted 100.0 (100) Neutrophils % (Manual) 73 (37.0-80.0) Band Neutrophils % (Manual) 2 Lymphocytes % (Manual) 17 (10.0-50.0) Monocytes % (Manual) 7 (0-12) Eosinophils % (Manual) 0 (0-7) Basophils % (Manual) 0 (0.0-2.0) Metamyelocytes % (manual) 0 Myelocytes % (Manual) 0 Promyelocytes % (Manual) 0 Blast Cells % (Manual) 0 Reactive Lymphocytes 1 Platelet Estimate Adequate Large Platelets Few Other Laboratory Tests 10/31/25 06:09 10/30/25 05:40 Brief Hx & Hospital Course: Final diagnoses: Small bowel obstruction, Hernia, Intractable nausea and vomiting, Hypertension, Hyperlipidemia, Hypothyroidism, Left inguinal hernia Partial bowel obstruction resolved Hypokalemia Hypernatremia resolved Hypomagnesemia Atrial fibrillation with rapid ventricular response She was admitted for abdominal pain and bowel obstruction was suspected with left inguinal hernia containing the large bowel General surgery recommended conservative treatment She had a bowel series which showed no bowel obstruction Overall she did well however she developed atrial fibrillation with rapid ventricular response She was given IV amiodarone which resolved and converted her to sinus rhythm again She was started on anticoagulation Overnight she has stayed in sinus rhythm Blood pressure is slightly elevated She has controlled her rate now Discharged home on Eliquis 5 mg twice a day Resume her home medications including losartan and levothyroxine Follow up with the primary care physician as soon as possible Surgery advised against doing surgery on her hernia since it is a wide hernia with no risk of incarceration Condition at Discharge: Stable Final Diagnosis/Problems List Small bowel obstruction, Hernia, Intractable nausea and vomiting, Hypertension, Hyperlipidemia, Hypothyroidism, Discharge Disposition: Home SNF Discharge Will this Physician continue t: No Discharge Instruct/Medications Scheduled Apixaban Base (Eliquis), 5 MG PO BID Aspirin (Asa), 1 TAB PO DAILY, (Reported) Cholecalciferol (Vitamin D3), 1 TAB PO DAILY, (Reported) Hydrochlorothiazide (Hydrochlorothiazide), 25 MG PO DAILY, (Reported) Levothyroxine Sodium (Levothyroxine Sodium), 88 MCG PO QAM, (Reported) Losartan Potassium (Losartan Potassium), 50 MG PO DAILY, (Reported) Pravastatin Sodium (Pravachol Tablet), 10 MG PO HS, (Reported) Discontinued Medications *Ibuprofen Micronized (*Motrin), 1 TAB PO Q6HP PRN for MILD PAIN OR TEMP>100.4, (Reported) Alendronate Sodium-Cholecalcif (Fosamax Plus D), 1 TAB PO DAILY, (Reported) Levothyroxine Sodium (Levothyroxine Sodium), 1 TAB PO QAM, (Reported) Meprobamate (Meprobamate), 1 TAB PO DAILY, (Reported) Propoxyphene-N W/ Apap (Darvocet-N 100), 1 TAB PO Q6HPRN PRN for MILD PAIN OR TEMP>100.4, (Reported) Discharge Statement: "Patient was advised to return to the ER or call 911 if any headaches, dizziness, shortness of breath, chest pain, abdominal pain, bleeding, fevers, or worsening of medical condition. Patient was counseled about treatment plan, medications, possible side effects, patientverbalized understanding. All questions were answered to the best of my ability. This discharge took greater then 30 minutes in planning, reviewing documentation, counseling the patient, and discussing with other team members." ASSESSMENT ASSESSMENT Assessment Date of Service: Oct 31, 2025 Billing Provider: PASHA COLBERT MD Common Visit Codes: [id number] DISCH DAY >30min PASHA COLBERT MD Oct 31, 2025 13:41
== END 2025-10-31 17:25 | disposition home or self-care (01) | DRG 393 ==
LOC: ER 06:44 → EDBD 06:44 → OVERFLOW 10:46 → TELE-EAST 23:53
PROVIDERS: ADMIT Internal Medicine Geriatric Medicine; ATTEND Internal Medicine Geriatric Medicine
PROC: 0D9670Z Drainage of Stomach with Drainage Device, Via Natural or Artificial Opening (ICD-10-PCS; principal; 2025-10-24)
DX: K40.30 Unilateral inguinal hernia, with obstruction, without gangrene, not specified as recurrent (principal); N17.0 Acute kidney failure with tubular necrosis; E87.0 Hyperosmolality and hypernatremia; K56.600 Partial intestinal obstruction, unspecified as to cause; E03.9 Hypothyroidism, unspecified; I10 Essential (primary) hypertension; K43.6 Other and unspecified ventral hernia with obstruction, without gangrene; E78.5 Hyperlipidemia, unspecified; J98.4 Other disorders of lung; I48.91 Unspecified atrial fibrillation; E87.6 Hypokalemia; E83.42 Hypomagnesemia; Z79.2 Long term (current) use of antibiotics; Z79.1 Long term (current) use of non-steroidal anti-inflammatories (NSAID); Z79.82 Long term (current) use of aspirin; Z79.899 Other long term (current) drug therapy; Z90.710 Acquired absence of both cervix and uterus
CPT/HCPCS: 36415; 71045; 74176; 74250; 80048; 80053; 83605; 83735; 84100; 84443; 85007; 85025; 85027; 85610; 85730; 87040; 93005; 93306; 96361; 96365; 96368; 96375; 97163; 99291; 99292; G0378; J2405; J3480; J3490